=== PATIENT | female | born 1965 | race Caucasian/White ===

== ENCOUNTER 2017-01-04 01:04 | Emergency (ER) | payer BC ==
[~2017-01-04] VITALS: Ht 168.9 cm; Wt 82.5 kg
[~2017-01-04 01:04] MED LIST: LORA-741 PO; PANT1TAB48 PO; ROPI1TAB70 PO; SERT50TA PO
[2017-01-04 01:09] VITALS: TEMP 36.8; Ht 168.9 cm; Wt 82.5 kg
[2017-01-04] MEDS ORDERED: ACETAMINOPHEN 500 MG TAB PO STA (01:14)
[2017-01-04 01:34] VITALS: O2SAT 98
[2017-01-04 01:46] LABS: HEMATOCRIT 44.4 % (37-47); MEAN CELL VOLUME 90.4 fL (80-100); MEAN CORPUSCULAR HEMOGLOBIN 29.7 pg (25-34); MEAN CORPUSCULAR HGB CONC 32.9 g/dl (32-36); MEAN PLATELET VOLUME 9.9 fL (7.4-10.4); PLATELET COUNT 323 K/uL (130-400); RED BLOOD COUNT 4.91 M/uL (4.2-5.4); WHITE BLOOD COUNT 10.68 K/uL (4.8-10.8)
[2017-01-04] MEDS ORDERED: ROPINIROLE HCL 1 MG TAB PO STA (01:56)
[2017-01-04 02:05] LABS: CALCIUM 9.5 mg/dl (8.5-10.1); CREATININE 0.74 mg/dl (0.60-1.20); POTASSIUM 3.9 mmol/L (3.5-5.1)
[2017-01-04 02:08] LABS: ALB/GLOB RATIO 1.1 (0.9-2)
[2017-01-04 02:30] LABS: BASO % 0.2 %; BASO ABS # 0.02 K/uL (0-0.2); COMPLETE YES; EOS % 2.2 %; HYPERSEGMENTED POLYS 1+; IG% 0.2 %; LYMPH % 49.3 %; LYMPH ABS # 5.26 K/uL (1.2-3.4); MONO % 6.6 %; NEUT % 41.5 %
--- NOTE | 2017-01-04 04:10 | EMERGENCY ROOM VISIT NOTE ---
History First contact with patient: 01:09 Chief Complaint: SWELLING TO EXTREMITY Stated Complaint: SWELLING IN LOWER LEFT LEG FROM KNEE DOWN History of Present Illness The patient is a 51 year old female who presents to the Emergency Room with complaints of left leg pain and swelling for the past 2 weeks that is steadily getting worse and fell and injured her leg 2 weeks ago. Patient was of left knee and vega pain. She states her leg is swollen. She is concerned about a DVT. She is able to ambulate. Pain 3 out of 10. Nothing makes it better or worse. Patient denies chest pain, dyspnea, fever, chills, numbness, tingling, abdominal pain, history DVT or PE. She does smoke. Review of Systems See HPI for pertinent positives & negatives. A total of 10 systems reviewed and were otherwise negative. Past Medical/Surgical History Medical Problems: (1) Back pain (2) Crohns disease Social History Smoking Status: Current Every Day Smoker Alcohol Use: occasionally Drug Use: none Occupation Status: employed Current/Historical Medications Scheduled Pantoprazole (Protonix), 40 MG PO QAM Ropinirole Hydrochloride (Ropinirole Er), 1 TAB PO HS Sertraline (Zoloft), 75 MG PO HS Scheduled PRN Lorazepam (Ativan), 0.5 MG PO Q6H PRN for Anxiety Allergies Coded Allergies: Venlafaxine (Verified Allergy, Mild, NAUSEA, 01/04/17) Bupropion (Verified Allergy, Unknown, Nausea/Vomiting, 01/04/17) Morphine (Verified Adverse Reaction, Mild, BURNING FEELING, 01/04/17) Physical Exam Vital Signs Date Time Temp Pulse Resp B/P Pulse Ox O2 Delivery O2 Flow Rate FiO2 01/04/17 03:19 89 18 116/68 95 Room Air 01/04/17 01:40 108 01/04/17 01:34 98 Room Air 01/04/17 01:09 36.8 110 18 156/97 98 Room Air Physical Exam VITALS: Vitals are noted on the nurse's note and reviewed by myself. Vital signs mildly tachycardic. GENERAL: Pleasant female, in no acute distress, nondiaphoretic, well-developed well-nourished. SKIN: Capillary reflex less than 2 seconds. HEENT: Normocephalic. PERRLA. EOMI. Nares patent. Mucous membranes moist. Neck is supple without nuchal rigidity. HEART: Regular rate and rhythm without murmurs gallops or rubs. LUNGS: Clear to auscultation bilaterally without wheezes, rales or rhonchi. No retractions or accessory muscle use. ABDOMEN: Positive bowel sounds x 4. Normal tympanic percussion. Soft, nontender, without masses or organomegaly. Cortez sign negative. No guarding or rebound tenderness. MUSCULOSKELETAL: No gross musculoskeletal defects. No pedal edema. Left knee medial aspect slightly tender to palpation and slightly edematous left calf tender to palpation slightly edematous. Pedal pulses +2 equal present bilaterally. Left vega nontender to the patient. NEURO: Patient was alert and oriented to person place and time. Normal sensation to light and sharp touch. No focal neurological deficits. Medical Decision & Procedures Laboratory Results 01/04/17 01:38 Red Blood Count 4.91, Mean Corpuscular Volume 90.4, Mean Corpuscular Hemoglobin 29.7, Mean Corpuscular Hemoglobin Concent 32.9, Mean Platelet Volume 9.9, Neutrophils (%) (Auto) 41.5, Lymphocytes (%) (Auto) 49.3, Monocytes (%) (Auto) 6.6, Eosinophils (%) (Auto) 2.2, Basophils (%) (Auto) 0.2, Neutrophils # (Auto) 4.44, Lymphocytes # (Auto) 5.26, Monocytes # (Auto) 0.71, Eosinophils # (Auto) 0.23, Basophils # (Auto) 0.02 01/04/17 01:38 Test 01/04/17 01:38 White Blood Count 10.68 K/uL (4.8-10.8) Red Blood Count 4.91 M/uL (4.2-5.4) Hemoglobin 14.6 g/dL (12.0-16.0) Hematocrit 44.4 % (37-47) Mean Corpuscular Volume 90.4 fL (80-100) Mean Corpuscular Hemoglobin 29.7 pg (25-34) Mean Corpuscular Hemoglobin Concent 32.9 g/dl (32-36) Platelet Count 323 K/uL (130-400) Mean Platelet Volume 9.9 fL (7.4-10.4) Neutrophils (%) (Auto) 41.5 % Lymphocytes (%) (Auto) 49.3 % Monocytes (%) (Auto) 6.6 % Eosinophils (%) (Auto) 2.2 % Basophils (%) (Auto) 0.2 % Neutrophils # (Auto) 4.44 K/uL (1.4-6.5) Lymphocytes # (Auto) 5.26 K/uL (1.2-3.4) Monocytes # (Auto) 0.71 K/uL (0.11-0.59) Eosinophils # (Auto) 0.23 K/uL (0-0.5) Basophils # (Auto) 0.02 K/uL (0-0.2) RDW Standard Deviation 44.0 fL (36.4-46.3) RDW Coefficient of Variation 13.3 % (11.5-14.5) Immature Granulocyte % (Auto) 0.2 % Immature Granulocyte # (Auto) 0.02 K/uL (0.00-0.02) Hypersegmented Polys 1+ Anion Gap 7.0 mmol/L (3-11) Est Creatinine Clear Calc Drug Dose 97.2 ml/min Estimated GFR () 108.0 Estimated GFR (Non- 93.1 BUN/Creatinine Ratio 25.0 (10-20) Calcium Level 9.5 mg/dl (8.5-10.1) Total Bilirubin 0.1 mg/dl (0.2-1) Aspartate Amino Transf (AST/SGOT) 21 U/L (15-37) Alanine Aminotransferase (ALT/SGPT) 25 U/L (12-78) Alkaline Phosphatase 98 U/L (45-117) Total Protein 8.0 gm/dl (6.4-8.2) Albumin 4.2 gm/dl (3.4-5.0) Globulin 3.8 gm/dl (2.5-4.0) Albumin/Globulin Ratio 1.1 (0.9-2) Medications Administered Medications (Trade) Dose Ordered Sig/Darby Route Start Time Stop Time Status Last Admin Dose Admin Acetaminophen (Tylenol Tab) 1,000 mg NOW STAT PO 01/04/17 01:14 01/04/17 01:15 DC 01/04/17 01:33 1,000 MG Ropinirole HCl (Requip Tab) 2 mg NOW STAT PO 01/04/17 01:56 01/04/17 01:57 DC 01/04/17 02:34 2 MG ED Course Prior records reviewed and summarized above. Triage Nursing notes reviewed. The patient's history was concerning for swelling and pain in the leg. Differential diagnosis: Etiologies such as DVT, musculoskeletal, infection, joint effusion, trauma, lymphedema, idiopathic, CHF, as well as others were entertained.. Physical examination: The physical examination revealed no signs of infection. Neurovascularly intact. ER treatment provided: Tylenol On reassessment the patient felt better. Diagnostics interpreted by me: The labs revealed no worrisome leukocytosis or electrolyte abnormality Imaging studies: US VENOUS LEFT LOWER EXTREMITY: No evidence of deep vein thrombosis. Knee x-ray with no acute fracture, dislocation or effusion per my interpretation This appears to be consistent with leg pain mostly from venous insufficiency and recent injury. Patient was advised to wear PANCHO hose for compression while up and about. Patient was neurovascularly and neurologically intact. She is well-appearing. No fracture. She was advised to follow-up with her family care doctor in a few days or here in the ER sooner for severe pain, numbness, tingling, worsening signs or symptoms or as needed. By the evaluation outlined above emergent etiologies such as DVT, septic joint, trauma, infection, CHF, as well as others were deemed relatively unlikely. The pt informed about the findings as listed above. All questions were answered and pleased with the treatment. Return instructions were outlined and the patient was discharged in stable condition. Referral: The patient was referred back to their primary care physician for follow-up in 2 to 3 days for a recheck of the current condition. Case reviewed with my attending. Medical Decision As above Impression Primary Impression: Left leg pain Additional Impression: Varicose veins of legs Departure Information Dispostion Home / Self-Care Condition GOOD Referrals Bandar Crisostomo PA-C (PCP) Patient Instructions My [facility] Additional Instructions Wear PANCHO hose when up and about throughout the day. Ibuprofen(Motrin, Advil) may be used for fever or pain. Use 600mg every six hours as needed. Take with food. Avoid using more than 2400mg in a 24 hour period. Do not use 2400mg per day for more than three consecutive days without physician direction. Prolonged inappropriate use can lead to stomach upset or ulcers. (AND/OR) Acetaminophen(Tylenol) may be used for fever or pain. Use 1000mg every six hours as needed. Avoid using more than 3000mg in a 24 hour period. Rest and drink plenty of fluids as tolerated. Continue current medications. Avoid strenuous activities and anything that worsens your pain. Resume normal activities once your symptoms resolve. Return to the ER immediately for worsening or persistent leg pain, abdominal pain, vomiting, fevers, chest pains, difficulty breathing, worsening of your condition, or as needed. Follow up with your primary physician in 2-3 days for a recheck of your current condition. Problem Qualifiers
[2017-01-04 04:21] VITALS: BP 128/73; PULSE 89; O2SAT 97
--- NOTE | 2017-01-04 07:02 | DIAGNOSTIC IMAGING REPORT ---
LEFT LOWER EXTREMITY VENOUS DOPPLER HISTORY: Left leg swelling. EVALUATE FOR DVT COMPARISON STUDY: None. FINDINGS: There is normal compressibility, flow, and augmentation within the left lower extremity deep venous system. IMPRESSION: No DVT within the left lower extremity. Electronically signed by: Sean Menjivar M.D. 01/04/2017 7:01 AM Dictated Date/Time: 01/04/2017 7:00 AM
--- NOTE | 2017-01-04 07:08 | DIAGNOSTIC IMAGING REPORT ---
LEFT KNEE 3 VIEWS HISTORY: fall, left COMPARISON: None. FINDINGS: There is no fracture or dislocation. Soft tissues are unremarkable. No radiopaque foreign bodies. No knee effusion. IMPRESSION: No fractures. Electronically signed by: Sean Menjivar M.D. 01/04/2017 7:06 AM Dictated Date/Time: 01/04/2017 7:06 AM
== END 2017-01-04 04:20 | disposition home or self-care (01) ==
LOC: C.EDB 01:05
DX: M79.605 Pain in left leg (principal); W19.XXXA Unspecified fall, initial encounter; I83.93 Asymptomatic varicose veins of bilateral lower extremities; K50.90 Crohn's disease, unspecified, without complications; F17.210 Nicotine dependence, cigarettes, uncomplicated; Z79.899 Other long term (current) drug therapy

== ENCOUNTER 2017-10-25 22:06 | Emergency (ER) | payer BC ==
[~2017-10-25] VITALS: Ht 167.6 cm; Wt 75.8 kg
[~2017-10-25 22:06] MED LIST changes: +PANT1TAB3 PO; -PANT1TAB48 PO
[2017-10-25 22:09] VITALS: TEMP 36.5; Ht 167.6 cm; Wt 75.8 kg
[2017-10-25 22:36] LABS: HEMATOCRIT 43.6 % (37-47); HEMOGLOBIN 15.1 g/dL (12.0-16.0); MEAN CELL VOLUME 89.3 fL (80-100); MEAN CORPUSCULAR HEMOGLOBIN 30.9 pg (25-34); MEAN CORPUSCULAR HGB CONC 34.6 g/dl (32-36); MEAN PLATELET VOLUME 10.4 fL (7.4-10.4); PLATELET COUNT 259 K/uL (130-400); RED CELL DISTRIBUTION WIDTH CV 13.7 % (11.5-14.5); RED CELL DISTRIBUTION WIDTH SD 44.9 fL (36.4-46.3); WHITE BLOOD COUNT 9.64 K/uL (4.8-10.8)
[2017-10-25 22:43] VITALS: O2SAT 99
[2017-10-25 22:45] LABS: PTT PATIENT 25.7 SECONDS (21.0-31.0)
--- NOTE | 2017-10-25 22:51 | DIAGNOSTIC IMAGING REPORT ---
SINGLE VIEW CHEST CLINICAL HISTORY: Atypical chest pain. FINDINGS: An AP, portable, upright chest radiograph is compared to study dated 05/18/2016 and correlated with chest CT dated 06/29/2016. The examination is degraded by portable technique and patient rotation. The cardiomediastinal silhouette is unremarkable. There is atherosclerotic calcification of the thoracic aorta. Emphysema and chronic interstitial thickening are unchanged. No airspace consolidation or pleural effusion is identified. Biapical scarring is similar to previous. No pneumothorax is seen. The skeletal structures are osteopenic. The bony thorax is grossly intact. IMPRESSION: Emphysema with no acute cardiopulmonary abnormality. Electronically signed by: Yordan Rousseau M.D. 10/25/2017 10:50 PM Dictated Date/Time: 10/25/2017 10:49 PM
[2017-10-25 22:52] LABS: ALBUMIN 4.2 gm/dl (3.4-5.0); ALT/SGPT 18 U/L (12-78); AST/SGOT 14 U/L (15-37); BLOOD UREA NITROGEN 18 mg/dl (7-18); CALCIUM 9.7 mg/dl (8.5-10.1); CARBON DIOXIDE 26 mmol/L (21-32); CREATININE 0.71 mg/dl (0.60-1.20); GLUCOSE 105 mg/dl (70-99); POTASSIUM 3.6 mmol/L (3.5-5.1); SODIUM 139 mmol/L (136-145)
[2017-10-25 22:56] LABS: ALKALINE PHOSPHATASE 90 U/L (45-117); TOTAL PROTEIN 7.8 gm/dl (6.4-8.2)
--- NOTE | 2017-10-25 23:00 | DIAGNOSTIC IMAGING REPORT ---
CT SCAN OF THE BRAIN WITHOUT IV CONTRAST CLINICAL HISTORY: Fatigue. COMPARISON STUDY: No priors. TECHNIQUE: Unenhanced axial CT scan of the brain is performed from the vertex to the skull base. A dose lowering technique was utilized adhering to the principles of ALARA. CT DOSE: 888.62 mGy.cm FINDINGS: Brain parenchyma: The brain parenchyma is normal in appearance. There is no hemorrhage, mass effect, or evidence of acute territorial ischemia by CT criteria. Vergara-white matter is preserved. No extra-axial fluid collection is seen. Ventricles, sulci, cisterns: Normal in configuration. Intracranial vasculature: The visualized intracranial vasculature at the skull base is normal in appearance. Calvarium: Unremarkable. Sinuses and mastoids: The visualized paranasal sinuses are clear. The mastoid air cells are well pneumatized. Orbits: The bony orbits are grossly intact. IMPRESSION: No acute intracranial abnormality. Electronically signed by: Yordan Rousseau M.D. 10/25/2017 10:59 PM Dictated Date/Time: 10/25/2017 10:56 PM
--- NOTE | 2017-10-25 23:03 | DIAGNOSTIC IMAGING REPORT ---
CT SCAN OF THE CERVICAL SPINE CLINICAL HISTORY: Neck pain. COMPARISON STUDY: No priors. TECHNIQUE: CT scan of the cervical spine is performed from the skull base to the upper thoracic spine. Images are reviewed in the axial, sagittal, and coronal planes. IV contrast was not administered for this examination. A dose lowering technique was utilized adhering to the principles of ALARA. CT DOSE: Reported separately under the concurrently performed CT scan of the brain. FINDINGS: Skeletal structures: The skeletal structures are osteopenic. There is no evidence of fracture or subluxation involving the cervical spine. Vertebral body height and alignment are maintained. There is straightening of the cervical lordosis with mild reversal centered at C4-C5. Tiny anterior osteophytes are seen throughout. The odontoid process and lateral masses are intact. The atlantoaxial articulation is preserved noting mild productive degenerative change. The spinous processes appear intact. Intervertebral discs: Mild disc space narrowing seen at C3-C4, C5-C6, and C6-C7. Central canal: Tiny posterior disc osteophyte complexes at C3-C4 and C5-C6 may contribute to minimal acquired compromise of the central canal. Soft tissues: The prevertebral and paraspinous soft tissues are within normal limits. Calvarium: The visualized calvarium at the skull base appears intact. Brain parenchyma: Partially visualized brain parenchyma the skull base is within normal limits. Sinuses and mastoids: The visualized paranasal sinuses are clear. The mastoid air cells are well pneumatized. Lung apices: Emphysema and marked pleural parenchymal scarring are present at the apices. IMPRESSION: There is no evidence of fracture or subluxation involving the cervical spine. Electronically signed by: Yordan Rousseau M.D. 10/25/2017 11:02 PM Dictated Date/Time: 10/25/2017 10:59 PM
[2017-10-26 00:55] VITALS: BP 107/63; PULSE 65; O2SAT 98
--- NOTE | 2017-10-26 01:13 | EMERGENCY ROOM VISIT NOTE ---
History First contact with patient: 22:13 Chief Complaint: CARDIAC ASSESSMENT Stated Complaint: FATIGUE, HEAVINESS IN CHEST Nursing Triage Summary: Pt. reports left arm heaviness that started today. Also reports pressure between her shoulder blades. Has shortness of breath, but attributes this to being a smoker. Denies chest pain. History of Present Illness The patient is a 52 year old female who presents to the Emergency Room with complaints of neck pain that goes down her arm described as discomfort and heaviness for the past day. Patient is a history of a pinched nerve in her neck. She states this feels slightly different. She states she has been having more stress lately. She does smoke. There is a family history of heart disease. No prior heart disease per patient. No history of blood clots. No injury to the area. Pain and discomfort have been present since 11 AM. Nothing makes it better or worse. Patient denies chest pain, dyspnea, fever, chills, injury to the area, numbness, tingling, localized weakness. No abdominal pain or recent illness. Patient states her left arm just feels kind of heavy like she has overexerted herself. She is able to use the arm. Review of Systems An 10 system review of systems was completed with positives and pertinent negatives listed in the HPI. Past Medical/Surgical History Medical Problems: (1) Back pain (2) Crohns disease Social History Smoking Status: Current Every Day Smoker Alcohol Use: occasionally Drug Use: none Marital Status: Housing Status: lives with family Occupation Status: employed Current/Historical Medications Scheduled Ropinirole Hydrochloride (Ropinirole Er), 2 MG PO HS Sertraline (Zoloft), 75 MG PO HS Scheduled PRN Lorazepam (Ativan), 0.5 MG PO Q6H PRN for Anxiety Physical Exam Vital Signs Date Time Temp Pulse Resp B/P (MAP) Pulse Ox O2 Delivery O2 Flow Rate FiO2 10/26/17 00:55 65 16 107/63 98 Room Air 10/25/17 23:00 60 20 129/76 98 Room Air 10/25/17 22:43 99 Room Air 10/25/17 22:31 170/97 10/25/17 22:30 76 22 97 Room Air 10/25/17 22:23 71 10/25/17 22:17 82 18 161/81 99 Room Air 10/25/17 22:17 100 Room Air 10/25/17 22:17 99 Room Air 10/25/17 22:09 36.5 92 20 145/107 97 Room Air Physical Exam VITALS: Vitals are noted on the nurse's note and reviewed by myself. Vital signs hypertensive GENERAL: Pleasant female with tobacco odor, in no acute distress, nondiaphoretic , well-developed well-nourished. SKIN: The skin was without rashes, erythema, edema, or bruising. There is no tenting of the skin. Capillary reflex less than 2 seconds. HEAD: Normocephalic atraumatic. EARS: External auditory canals clear, tympanic membranes pearly vergara without erythema or effusion bilaterally. EYES: Pupils equal round and reactive to light and accommodation. Conjunctivae without injection, sclerae without icterus. Extraocular movements intact. NOSE: Patent, turbinates without inflammation or discharge. MOUTH: Mucous membranes moist. Pharynx without erythema or exudate. Uvula midline. Airway patent. Tongue does not deviate. NECK: Supple without nuchal rigidity. No lymphadenopathy. No thyromegaly. Cervical spine is nontender. No JVD. HEART: Regular rate and rhythm LUNGS: Clear to auscultation bilaterally without wheezes, rales or rhonchi. No retractions or accessory muscle use. ABDOMEN: Positive bowel sounds x 4. Normal tympanic percussion. Soft, nontender, without masses or organomegaly. Cortez sign negative. No guarding or rebound tenderness. No CVA tenderness MUSCULOSKELETAL: No muscle atrophy, erythema, or edema noted. 5 out of 5 strength throughout all extremities and nontender to palpation. +2 peripheral pulses throughout NEURO: Patient was alert and oriented to person place and time. Normal sensation to light and sharp touch. No focal neurological deficits. Medical Decision & Procedures Laboratory Results 10/25/17 22:20 Red Blood Count 4.88, Mean Corpuscular Volume 89.3, Mean Corpuscular Hemoglobin 30.9, Mean Corpuscular Hemoglobin Concent 34.6, Mean Platelet Volume 10.4 10/25/17 22:20 Test 10/25/17 22:20 10/26/17 00:55 White Blood Count 9.64 K/uL (4.8-10.8) Red Blood Count 4.88 M/uL (4.2-5.4) Hemoglobin 15.1 g/dL (12.0-16.0) Hematocrit 43.6 % (37-47) Mean Corpuscular Volume 89.3 fL (80-100) Mean Corpuscular Hemoglobin 30.9 pg (25-34) Mean Corpuscular Hemoglobin Concent 34.6 g/dl (32-36) Platelet Count 259 K/uL (130-400) Mean Platelet Volume 10.4 fL (7.4-10.4) RDW Standard Deviation 44.9 fL (36.4-46.3) RDW Coefficient of Variation 13.7 % (11.5-14.5) Neutrophils % (Manual) 37.7 % Lymphocytes % (Manual) 29.8 % Variant Lymphocytes % (manual) 28.1 % Monocytes % (Manual) 3.5 % Eosinophils % (Manual) 0.9 % Neutrophils # (Manual) 3.63 K/uL (1.4-6.5) Total Absolute Neutrophils 3.63 K/uL (1.4-6.5) Lymphocytes # (Manual) 2.87 K/uL (1.2-3.4) Absolute Variant Lymphocytes 2.71 K/uL Total Absolute Lymphocytes 5.58 K/uL (1.2-3.4) Monocytes # (Manual) 0.34 K/uL (0.11-0.59) Eosinophils # (Manual) 0.09 K/uL (0-0.5) Red Blood Cell Morphology Unremarkable Prothrombin Time 10.3 SECONDS (9.0-12.0) Prothromb Time International Ratio 1.0 (0.9-1.1) Activated Partial Thromboplast Time 25.7 SECONDS (21.0-31.0) Partial Thromboplastin Ratio 1.0 Anion Gap 6.0 mmol/L (3-11) Est Creatinine Clear Calc Drug Dose 95.3 ml/min Estimated GFR () 112.7 Estimated GFR (Non- 97.2 BUN/Creatinine Ratio 24.6 (10-20) Calcium Level 9.7 mg/dl (8.5-10.1) Magnesium Level 2.1 mg/dl (1.8-2.4) Total Bilirubin 0.3 mg/dl (0.2-1) Direct Bilirubin 0.1 mg/dl (0-0.2) Aspartate Amino Transf (AST/SGOT) 14 U/L (15-37) Alanine Aminotransferase (ALT/SGPT) 18 U/L (12-78) Alkaline Phosphatase 90 U/L (45-117) Troponin I < 0.015 ng/ml (0-0.045) Total Protein 7.8 gm/dl (6.4-8.2) Albumin 4.2 gm/dl (3.4-5.0) Bedside Troponin I < 0.030 ng/ml (0-0.045) ED Course Prior records/ancillary studies reviewed. Triage Nursing notes reviewed. Additional history obtained from family The patient's history was concerning for neck to left arm and heaviness. Differential diagnosis: Etiologies such as neurologic, cervical radiculopathy, cardiac ischemia, aortic dissection, pulmonary embolism, pneumonia, pneumothorax, musculoskeletal, infections, pericarditis, myocarditis, esophageal rupture, gastrointestinal, as well as others were entertained. Physical examination: As above. ER treatment provided: po fluids On reassessment the patient felt better. Diagnostic interpretation by me: The electrocardiogram was negative for pathologic change. Normal sinus, normal intervals, no acute ST-T wave changes. Rate is 74. Impression normal sinus rhythm interpreted by myself The labs revealed 2 troponins that are negative greater than 2 hours apart Mild hyperglycemia without DKA Imaging studies: CLINICAL HISTORY: Neck pain. COMPARISON STUDY: No priors. TECHNIQUE: CT scan of the cervical spine is performed from the skull base to the upper thoracic spine. Images are reviewed in the axial, sagittal, and coronal planes. IV contrast was not administered for this examination. A dose lowering technique was utilized adhering to the principles of ALARA. CT DOSE: Reported separately under the concurrently performed CT scan of the brain. FINDINGS: Skeletal structures: The skeletal structures are osteopenic. There is no evidence of fracture or subluxation involving the cervical spine. Vertebral body height and alignment are maintained. There is straightening of the cervical lordosis with mild reversal centered at C4-C5. Tiny anterior osteophytes are seen throughout. The odontoid process and lateral masses are intact. The atlantoaxial articulation is preserved noting mild productive degenerative change. The spinous processes appear intact. Intervertebral discs: Mild disc space narrowing seen at C3-C4, C5-C6, and C6-C7. Central canal: Tiny posterior disc osteophyte complexes at C3-C4 and C5-C6 may contribute to minimal acquired compromise of the central canal. Soft tissues: The prevertebral and paraspinous soft tissues are within normal limits. Calvarium: The visualized calvarium at the skull base appears intact. Brain parenchyma: Partially visualized brain parenchyma the skull base is within normal limits. Sinuses and mastoids: The visualized paranasal sinuses are clear. The mastoid air cells are well pneumatized. Lung apices: Emphysema and marked pleural parenchymal scarring are present at the apices. IMPRESSION: There is no evidence of fracture or subluxation involving the cervical spine. Electronically signed by: Yordan Rousseau M.D. CT SCAN OF THE BRAIN WITHOUT IV CONTRAST CLINICAL HISTORY: Fatigue. COMPARISON STUDY: No priors. TECHNIQUE: Unenhanced axial CT scan of the brain is performed from the vertex to the skull base. A dose lowering technique was utilized adhering to the principles of ALARA. CT DOSE: 888.62 mGy.cm FINDINGS: Brain parenchyma: The brain parenchyma is normal in appearance. There is no hemorrhage, mass effect, or evidence of acute territorial ischemia by CT criteria. Vergara-white matter is preserved. No extra-axial fluid collection is seen. Ventricles, sulci, cisterns: Normal in configuration. Intracranial vasculature: The visualized intracranial vasculature at the skull base is normal in appearance. Calvarium: Unremarkable. Sinuses and mastoids: The visualized paranasal sinuses are clear. The mastoid air cells are well pneumatized. Orbits: The bony orbits are grossly intact. IMPRESSION: No acute intracranial abnormality. SINGLE VIEW CHEST CLINICAL HISTORY: Atypical chest pain. FINDINGS: An AP, portable, upright chest radiograph is compared to study dated 05/18/2016 and correlated with chest CT dated 06/29/2016. The examination is degraded by portable technique and patient rotation. The cardiomediastinal silhouette is unremarkable. There is atherosclerotic calcification of the thoracic aorta. Emphysema and chronic interstitial thickening are unchanged. No airspace consolidation or pleural effusion is identified. Biapical scarring is similar to previous. No pneumothorax is seen. The skeletal structures are osteopenic. The bony thorax is grossly intact. IMPRESSION: Emphysema with no acute cardiopulmonary abnormality Electronically signed by: Yordan Rousseau M.D. Heart score is 2 for tobacco use and age Exam and history seem consistent with cervical radiculopathy. Patient was neurovascularly and neurologically intact. She had a normal EKG. 2 negative troponins. Patient has been underneath more stress lately. She is advised to rest, decrease stress, recommend stop smoking and follow-up family care in a few days or here in the ER sooner for chest pain, difficulty breathing, weakness , worsening signs or symptoms or as needed.By the evaluation outlined above emergent etiologies such as cardiac ischemia, aortic dissection, pulmonary embolism, pneumonia, pneumothorax, infections, pericarditis, myocarditis, gastrointestinal, as well as others were deemed relatively unlikely. The pt informed about the findings as listed above. All questions were answered and pleased with the treatment. Return instructions were outlined and the patient was discharged in stable condition. Referral: The patient was referred back to primary care physician for follow-up in 2 to 3 days for a recheck of the current condition. Case reviewed with my attending The chart was completed utilizing [employer] voice recognition software. Grammatical errors, random word insertions, pronoun errors, and incomplete sentences are an occassional consequence of this system due to software limitations, ambient noise, and hardware issues. Any formal questions or concerns about the content, text, or information contained within the body of this dictation should be directly addressed to the physician trust manager assistant for clarification. Medical Decision as above Medication Reconcilliation Current Medication List: was personally reviewed by me Blood Pressure Screening Patient's blood pressure: Normal blood pressure Impression Primary Impression: Cervical radiculopathy Departure Information Dispostion Home / Self-Care Condition GOOD Referrals Bandar Crisostomo PA-C (PCP) Patient Instructions My [facility] Additional Instructions Ibuprofen(Motrin, Advil) may be used for fever or pain. Use 600mg every six hours as needed. Take with food. Avoid using more than 2400mg in a 24 hour period. Do not use 2400mg per day for more than three consecutive days without physician direction. Prolonged inappropriate use can lead to stomach upset or ulcers. (AND/OR) Acetaminophen(Tylenol) may be used for fever or pain. Use 1000mg every six hours as needed. Avoid using more than 3000mg in a 24 hour period. Rest and drink plenty of fluids as tolerated. Continue current medications. Avoid strenuous activities and anything that worsens your pain. Resume normal activities once your symptoms resolve. Return to the ER immediately for worsening or persistent chest pain, abdominal pain, vomiting, fevers, chest pains, difficulty breathing, worsening of your condition, or as needed. Follow up with your primary physician in 2-3 days for a recheck of your current condition.
== END 2017-10-26 01:20 | disposition home or self-care (01) ==
LOC: C.EDB 22:08
DX: M54.12 Radiculopathy, cervical region (principal); F17.200 Nicotine dependence, unspecified, uncomplicated; K50.90 Crohn's disease, unspecified, without complications; Z82.49 Family history of ischemic heart disease and other diseases of the circulatory system

== ENCOUNTER 2022-01-08 02:04 | Observation (INO) ==
[2022-01-08] MEDS ORDERED: FAMOTIDINE 20MG IV PUSH 20 MG/5 ML SYR IV STA (03:10)
[2022-01-08 03:23] LABS: Basophils # (auto) 0.01 K/uL (0-0.2); Basophils % (auto) 0.1 %; Eosinophils # (auto) 0.14 K/uL (0-0.5); Eosinophils % (auto) 1.1 %; Hematocrit (blood only) 46.7 % (37-47); Hemoglobin 15.6 g/dL (12.0-16.0); Immature Granulocytes # (auto) 0.05 K/uL (0.00-0.02); Immature Granulocytes % (auto) 0.4 %; Lymphocytes # (auto) 2.66 K/uL (1.2-3.4); Mean Corpuscular Hgb Conc 33.4 g/dL (32-36); Mean Corpuscular Volume 92.7 fL (80-100); Mean Platelet Volume 10.8 fL (7.4-10.4); Monocytes % (auto) 6.3 %; Neutrophils # (auto) 8.98 K/uL (1.4-6.5); Neutrophils % (auto) 71.1 %; Platelet Count 282 K/uL (130-400); RDW Coefficient of Variation 13.8 % (11.5-14.5); Red Blood Count 5.04 M/uL (4.2-5.4); White Blood Count 12.64 K/uL (4.8-10.8)
[2022-01-08 04:02] LABS: Albumin Globulin Ratio 1.5 (0.9-2); Albumin Level 4.3 gm/dl (3.4-5.0); Bilirubin,Total 0.5 mg/dl (0.2-1.0); Calcium 9.8 mg/dl (8.5-10.1); Creatinine Clr Calc Pharmacy 92.3 ml/min; Est GFR (African American) 100.9 ml/min; Est GFR (Non-African American) 87.1 ml/min; Globulin 2.9 gm/dl (2.5-4.0); Potassium 3.8 mmol/L (3.5-5.1); Total Protein 7.2 gm/dl (6.0-8.3)
[2022-01-08 04:07] LABS: Appearance Urine Clear (Clear); Bacteria Urine Automated Negative (Negative); Bilirubin Urine Negative (Negative); Blood Urine Negative (Negative); Color Urine Yellow; Glucose Urine UA Negative (Negative); Ketones Urine Negative (Negative); Leukocyte Esterase Urine 1+ (Negative); Nitrite Urine Negative (Negative); Protein Urine Negative (Negative); RBC Urine Automated 0-4 /hpf (0-4); Specific Gravity Urine 1.012 (1.000-1.030); Urobilinogen Urine Negative (Negative)
--- NOTE | 2022-01-08 05:07 | Emergency Department Note ---
Impression & Plan Epigastric abdominal pain The case was signed out to doctor Gregorio at change of shift ED Provider Note NAME: LILI SALDIVAR AGE: 56 SEX: F ARRIVES VIA: Ambulance INFORMANT: [Patient] ED PROVIDER(S): Franny Farias DO CHIEF COMPLAINT: Epigastric pain PLAN: Disposition: The case was signed out to doctor Gregorio at change of shift Condition: Stable MEDICAL DECISION MAKING: This is a 56-year-old female patient who presents to the emergency department with epigastric abdominal pain that would not respond to her omeprazole. The patient received IV Pepcid in the emergency department. Laboratory studies were fairly unremarkable except for elevated transaminases. The patient was able to rest comfortably. She underwent ultrasound the gallbladder and was awaiting results of that test. The case was signed out to doctor Gregorio at change of shift awaiting results. Triage Nursing notes reviewed and agree with them Vital Signs: reviewed and remarkable for mild hypertension Differential diagnosis: GERD, pancreatitis, ulcerative disease, cholecystitis ER treatment provided: IV Pepcid Diagnostics interpreted by me: ECG: Normal sinus rhythm at a rate of [address] segment elevation or signs of ischemia. There is no ectopy. Cardiac Monitoring: Normal sinus rhythm at a rate of 69 Laboratory studies: [See below] Imaging studies: As per Stat Rad Right upper quadrant ultrasound- pending HPI: 56/F arrives for evaluation of epigastric abdominal pain. The patient developed epigastric abdominal pain that radiated to her left shoulder earlier this evening. She tried taking omeprazole around 6 PM and then again at 11 PM with no relief of her symptoms. Became more concerned and called EMS. Upon their assessment, she was nauseated and they provided Zofran which did give her some relief of the nausea. ROS: See above HPI for pertinent positives & negatives. A total of [10] systems reviewed and were otherwise negative. PAST MEDICAL HISTORY:[See Below] PAST SURGICAL HISTORY:[See Below] FAMILY HISTORY:[See Below] SOCIAL HISTORY:[See Below] HOME MEDICATIONS:See list ALLERGIES:See list VITALS:[See Below] PHYSICAL EXAMINATION: HEENT: Head - normocephalic and atraumatic. Pupils are equal, round, and reactive to light. Extraocular eye muscles are intact, and sclera are anicteric. Nose - moist nasal mucosa without discharge. Mouth - moist buccal mucosa. Oropharynx is nonerythematous and there is no tonsillar exudate or edema noted. Neck: Supple; no cervical lymphadenopathy or thyromegaly. Heart: Regular rate and rhythm. There is a normal S1 and S2 with no murmurs, clicks, or gallops appreciated. Lungs: Clear to auscultation bilaterally with no wheezes, rales, or rhonchi. Abdomen: Soft, mild tenderness to palpation in the epigastrium, nondistended, with good bowel sounds. There are no palpable pulsatile masses or hepatosplenomegaly. There is no guarding, rigidity, or rebound noted. Extremities: No evidence of cyanosis, clubbing, or edema. There are easily palpable peripheral pulses. Skin: warm and dry with good turgor and no rashes. ED COURSE: Times/Reassessments: 230 the patient was evaluated in room B 12. A complete history and physical was performed. Laboratory studies were drawn as above. An order was placed for continuous cardiac monitoring. Patient was in a normal sinus rhythm at a rate of 69. A twelve-lead EKG was obtained. A portable chest x-ray was performed. I reviewed the results of the laboratory studies with the patient and her family. Patient was given a dose of IV Pepcid. She will go for an ultrasound of the right upper quadrant -[id number]- A DO Jarrett Past Med/Surg History Medical History Acid reflux disease Anxiety and depression Asthma Chronic pain syndrome Crohns disease Migraine headache Pulmonary emphysema Restless legs syndrome Surgical History H/O elbow surgery left H/O knee surgery left H/O tubal ligation H/O: hysterectomy History of lung surgery Family History Father Diabetes Hypertension Cardiac disorder Urinary bladder cancer Myocardial infarction Lung disease Heart disease Mother Kidney stones Anxiety Depression Arthritis Uncle Prostate cancer Unknown Breast cancer Grandmother (Maternal) Arthritis Grandfather (Maternal) Dementia Grandmother (Paternal) Heart disease Grandfather (Paternal) Gallbladder cancer Sister Stroke Kidney failure Social History (Reviewed 01/08/22 @ 11:06 by KSENIA Rojas Smoking Status: Current every day smoker Tobacco Type: Cigarettes Age Started Using Tobacco: 12; packs per day: 1.5; Years Smoked: 23; Cigarettes Per Day: 1.5 packs; Second Hand Exposure: Yes ( A CHILD ); Do You Dip or Chew Tobacco: No; Hx Alcohol Use: Yes Alcohol type: wine and hard liquor Alcohol Intake Frequency: Monthly or Less Hx Substance Use: No Preferred Language: [place] Communication Ability: Effective Visual Impairment: No Limitations Hearing Ability: Normal Traffic Analyst Required: No Beliefs That Will Affect Care: None marital status: Current Living Situation: Spouse current occupational status: disabled How many Children do You have: 1 Other Information That Helps Us Care for You: No Feels Safe at Home: Yes Safety Concerns: Feels Safe At This Time Childhood Exposure to Second-Hand Smoke: No caffeine: Yes (Coffee x 1 cup - Soda 1 per day.) during the past year weight has: remained stable Dental Care, Regularly: No Physical Activity Frequency: Daily Seatbelt Use: always Sunscreen Use: No Assistive Devices: Glasses Allergies Allergies Allergy/AdvReac Type Severity Reaction Status Date / Time venlafaxine Allergy Mild NAUSEA Verified 11/26/21 09:29 bupropion Allergy Unknown Nausea/Vomi Verified 11/26/21 09:29 ting morphine AdvReac Mild BURNING Verified 11/26/21 09:29 FEELING Home Meds Home Medications Medication Instructions Recorded Confirmed iron,carbonyl 65 mg-vitamin C 125 1 tab PO DAILY 10/22/20 01/08/22 mg tablet,delayed release (Vitron-C) mecobalamin (vitamin B12) 1,000 1,000 mcg PO DAILY 11/16/21 01/08/22 mcg chewable tablet (B12 Active) thiamine HCl (vitamin B1) 500 mg 500 mg PO DAILY 11/16/21 01/08/22 tablet duloxetine 30 mg capsule,delayed See Rx Instructions .ROUTE 11/26/21 01/08/22 release .COMPLEX cap duloxetine 60 mg capsule,delayed See Rx Instructions .ROUTE 11/26/21 01/08/22 release .COMPLEX cap ropinirole 2 mg tablet 2 mg PO BID 01/08/22 01/08/22 ropinirole 3 mg tablet 3 mg PO HS 01/08/22 01/08/22 Previous Rx's Medication Instructions Recorded epinephrine 0.3 mg/0.3 mL 0.3 mg SUBCUT ONCE PRN #2 ea 07/12/19 injection, auto-injector (EpiPen 2-Navin) ibuprofen 800 mg tablet 800 mg PO TID PRN #90 tab 05/26/21 lorazepam 0.5 mg tablet 0.5 mg PO TID PRN #90 tab 08/11/21 omeprazole 40 mg capsule,delayed 40 mg PO QAM #90 cap 10/20/21 release methocarbamol 500 mg tablet 500 mg PO TID PRN #90 tab 10/22/21 gabapentin 400 mg capsule 400 mg PO .COMPLEX 30 Days #120 cap 11/15/21 diclofenac sodium 1 % topical gel 2 g TOPICAL QID #100 g 11/16/21 (Voltaren Arthritis Pain) Results & Data (ED) Vital Signs Vital Signs - 24 hr 01/08/22 01:54 01/08/22 02:15 01/08/22 04:00 Temperature 36.8 C Temperature Source Oral Pulse Rate [Apical] Pulse Rate [Right Finger] 85 69 Pulse Rhythm [Apical] Pulse Rhythm [Right Finger] Regular Regular Pulse Strength [Apical] Pulse Strength [Right Finger] Normal Respiratory Rate 18 18 Respiratory Effort / Characteristics Non-Labored Spontaneous Respiratory Depth Normal Normal Respiratory Pattern Regular Blood Pressure [Left Arm] Blood Pressure [Left Radial Artery] 176/85 H 156/88 H Blood Pressure [Right Arm] Blood Pressure Mean [Left Arm] Blood Pressure Mean [Left Radial Artery] 115 110 Blood Pressure Mean [Right Arm] Blood Pressure Position [Left Arm] Blood Pressure Position [Left Radial Artery] Lying Blood Pressure Position [Right Arm] Pulse Oximetry 97 96 Oxygen Delivery Method Room Air Room Air Oxygen Flow Rate Sepsis Recent Fever Within 48 Hours No Sepsis New/Unexplained Change in Mental Status No Sepsis Action Taken by Nursing No Action Required 01/08/22 06:20 01/08/22 07:43 01/08/22 08:45 Temperature Temperature Source Pulse Rate [Apical] Pulse Rate [Right Finger] 54 L 60 52 L Pulse Rhythm [Apical] Pulse Rhythm [Right Finger] Regular Pulse Strength [Apical] Pulse Strength [Right Finger] Normal Respiratory Rate 20 18 18 Respiratory Effort / Characteristics Non-Labored Spontaneous Respiratory Depth Normal Respiratory Pattern Blood Pressure [Left Arm] 167/90 H 134/78 147/75 H Blood Pressure [Left Radial Artery] Blood Pressure [Right Arm] Blood Pressure Mean [Left Arm] 115 96 99 Blood Pressure Mean [Left Radial Artery] Blood Pressure Mean [Right Arm] Blood Pressure Position [Left Arm] Lying Blood Pressure Position [Left Radial Artery] Blood Pressure Position [Right Arm] Pulse Oximetry 99 99 98 Oxygen Delivery Method Room Air Room Air Room Air Oxygen Flow Rate Sepsis Recent Fever Within 48 Hours Sepsis New/Unexplained Change in Mental Status Sepsis Action Taken by Nursing 01/08/22 10:23 01/08/22 10:30 01/08/22 10:40 Temperature 36.1 C L Temperature Source Temporal Artery Scan Pulse Rate [Apical] 72 74 80 Pulse Rate [Right Finger] Pulse Rhythm [Apical] Regular Regular Regular Pulse Rhythm [Right Finger] Pulse Strength [Apical] Normal Normal Normal Pulse Strength [Right Finger] Respiratory Rate 15 13 18 Respiratory Effort / Characteristics Non-Labored Spontaneous Non-Labored Spontaneous Non-Labored Spontaneous Respiratory Depth Normal Normal Normal Respiratory Pattern Regular Regular Regular Blood Pressure [Left Arm] Blood Pressure [Left Radial Artery] Blood Pressure [Right Arm] 161/88 H 149/87 H 158/78 H Blood Pressure Mean [Left Arm] Blood Pressure Mean [Left Radial Artery] Blood Pressure Mean [Right Arm] 112 107 104 Blood Pressure Position [Left Arm] Blood Pressure Position [Left Radial Artery] Blood Pressure Position [Right Arm] Semi-fowlers Semi-fowlers Semi-fowlers Pulse Oximetry 97 100 98 Oxygen Delivery Method Oxymask Oxymask Oxymask Oxygen Flow Rate 6 6 6 Sepsis Recent Fever Within 48 Hours Sepsis New/Unexplained Change in Mental Status Sepsis Action Taken by Nursing 01/08/22 10:50 Temperature Temperature Source Pulse Rate [Apical] 54 L Pulse Rate [Right Finger] Pulse Rhythm [Apical] Regular Pulse Rhythm [Right Finger] Pulse Strength [Apical] Normal Pulse Strength [Right Finger] Respiratory Rate 17 Respiratory Effort / Characteristics Non-Labored Spontaneous Respiratory Depth Normal Respiratory Pattern Regular Blood Pressure [Left Arm] Blood Pressure [Left Radial Artery] Blood Pressure [Right Arm] 154/74 H Blood Pressure Mean [Left Arm] Blood Pressure Mean [Left Radial Artery] Blood Pressure Mean [Right Arm] 100 Blood Pressure Position [Left Arm] Blood Pressure Position [Left Radial Artery] Blood Pressure Position [Right Arm] Semi-fowlers Pulse Oximetry 97 Oxygen Delivery Method Oxymask Oxygen Flow Rate 4 Sepsis Recent Fever Within 48 Hours Sepsis New/Unexplained Change in Mental Status Sepsis Action Taken by Nursing Laboratory Data Result diagrams: 01/08/22 02:50 01/08/22 02:50 Lab Results 01/08/22 01/08/22 01/08/22 Range/Units 02:50 02:50 02:50 WBC 12.64 H (4.8-10.8) K/uL RBC 5.04 (4.2-5.4) M/uL Hgb 15.6 (12.0-16.0) g/dL Hct 46.7 (37-47) % MCV 92.7 (80-100) fL MCH 31.0 (25-34) pg MCHC 33.4 (32-36) g/dL RDW Std Deviation 47.0 H (36.4-46.3) fL RDW Coeff of Inez 13.8 (11.5-14.5) % Plt Count 282 (130-400) K/uL MPV 10.8 H (7.4-10.4) fL Immature Gran % (Auto) 0.4 % Neut % (Auto) 71.1 % Lymph % (Auto) 21.0 % Carlton % (Auto) 6.3 % Eos % (Auto) 1.1 % Baso % (Auto) 0.1 % Neut # (Auto) 8.98 H (1.4-6.5) K/uL Lymph # (Auto) 2.66 (1.2-3.4) K/uL Carlton # (Auto) 0.80 H (0.11-0.59) K/uL Eos # (Auto) 0.14 (0-0.5) K/uL Baso # (Auto) 0.01 (0-0.2) K/uL Immature Gran # (Auto) 0.05 H (0.00-0.02) K/uL Sodium 142 (136-145) mmol/L Potassium 3.8 (3.5-5.1) mmol/L Chloride 106 (98-107) mmol/L Carbon Dioxide 30 (21-32) mmol/L Anion Gap 6 (3-11) BUN 19 (6-23) mg/dl Creatinine 0.76 (0.6-1.2) mg/dl Est Cr Clr Drug Dosing 92.3 ml/min Est GFR ( Amer) 100.9 ml/min Est GFR (Non-Af Amer) 87.1 ml/min BUN/Creatinine Ratio 25.0 H (10-20) Glucose 108 H (70-99(Fasting)) mg/dl Calcium 9.8 (8.5-10.1) mg/dl Total Bilirubin 0.5 (0.2-1.0) mg/dl AST 131 H (13-39) U/L ALT 64 H (7-52) U/L Alkaline Phosphatase 81 (34-104) U/L Troponin I High Sens 4.4 (0-14) pg/ml Total Protein 7.2 (6.0-8.3) gm/dl Albumin 4.3 (3.4-5.0) gm/dl Globulin 2.9 (2.5-4.0) gm/dl Albumin/Globulin Ratio 1.5 (0.9-2) Lipase 27 (11-82) U/L Urine Color Urine Appearance (Clear) Urine pH (4.5-7.5) Ur Specific [place] (1.000-1.030) Urine Protein (Negative) Urine Glucose (UA) (Negative) Urine Ketones (Negative) Urine Blood (Negative) Urine Nitrite (Negative) Urine Bilirubin (Negative) Urine Urobilinogen (Negative) Ur Leukocyte Esterase (Negative) Urine WBC (Auto) (0-5) /hpf Urine RBC (Auto) (0-4) /hpf U Hyaline Cast (Auto) (0-5) /lpf U Epithel Cells (Auto) (0-5) /lpf Urine Bacteria (Auto) (Negative) SARS-CoV-2, RNA, NAAT (NEGATIVE) 01/08/22 01/08/22 Range/Units 03:00 07:55 WBC (4.8-10.8) K/uL RBC (4.2-5.4) M/uL Hgb (12.0-16.0) g/dL Hct (37-47) % MCV (80-100) fL MCH (25-34) pg MCHC (32-36) g/dL RDW Std Deviation (36.4-46.3) fL RDW Coeff of Inez (11.5-14.5) % Plt Count (130-400) K/uL MPV (7.4-10.4) fL Immature Gran % (Auto) % Neut % (Auto) % Lymph % (Auto) % Carlton % (Auto) % Eos % (Auto) % Baso % (Auto) % Neut # (Auto) (1.4-6.5) K/uL Lymph # (Auto) (1.2-3.4) K/uL [place] # (Auto) (0.11-0.59) K/uL Eos # (Auto) (0-0.5) K/uL Baso # (Auto) (0-0.2) K/uL Immature Gran # (Auto) (0.00-0.02) K/uL Sodium (136-145) mmol/L Potassium (3.5-5.1) mmol/L Chloride (98-107) mmol/L Carbon Dioxide (21-32) mmol/L Anion Gap (3-11) BUN (6-23) mg/dl Creatinine (0.6-1.2) mg/dl Est Cr Clr Drug Dosing ml/min Est GFR ( Amer) ml/min Est GFR (Non-Af Amer) ml/min BUN/Creatinine Ratio (10-20) Glucose (70-99(Fasting)) mg/dl Calcium (8.5-10.1) mg/dl Total Bilirubin (0.2-1.0) mg/dl AST (13-39) U/L ALT (7-52) U/L Alkaline Phosphatase (34-104) U/L Troponin I High Sens (0-14) pg/ml Total Protein (6.0-8.3) gm/dl Albumin (3.4-5.0) gm/dl Globulin (2.5-4.0) gm/dl Albumin/Globulin Ratio (0.9-2) Lipase (11-82) U/L Urine Color Yellow Urine Appearance Clear (Clear) Urine pH 7.0 (4.5-7.5) Ur Specific [place] 1.012 (1.000-1.030) Urine Protein Negative (Negative) Urine Glucose (UA) Negative (Negative) Urine Ketones Negative (Negative) Urine Blood Negative (Negative) Urine Nitrite Negative (Negative) Urine Bilirubin Negative (Negative) Urine Urobilinogen Negative (Negative) Ur Leukocyte Esterase 1+ H (Negative) Urine WBC (Auto) 5-10 H (0-5) /hpf Urine RBC (Auto) 0-4 (0-4) /hpf U Hyaline Cast (Auto) 1-5 (0-5) /lpf U Epithel Cells (Auto) 10-20 H (0-5) /lpf Urine Bacteria (Auto) Negative (Negative) SARS-CoV-2, RNA, NAAT NEGATIVE (NEGATIVE) Administered Medications Diclofenac Sodium (Diclofenac Sod 1% Gel 100 Gm Tube) 2 gm EXT QID THIEN Stop: 02/07/22 12:59 Last Admin: 01/08/22 21:00 Dose: 2 gm Documented by: [id number] Admin: 01/08/22 16:34 Dose: 2 gm Documented by: [id number] Admin: 01/08/22 13:42 Dose: Not Given Documented by: [id number] Duloxetine HCl (Duloxetine Hcl 30 Mg Cap) 90 mg PO QAM THIEN Stop: 02/08/22 08:59 Last Admin: 01/08/22 21:02 Dose: 90 mg Documented by: [id number] Gabapentin (Gabapentin 400 Mg Cap) 400 mg PO DAILY@0900,1500 THIEN Stop: 02/07/22 14:59 Last Admin: 01/08/22 16:38 Dose: Not Given Documented by: [id number] Gabapentin (Gabapentin 800 Mg Tab) 800 mg PO HS THIEN Stop: 02/07/22 20:59 Last Admin: 01/08/22 21:01 Dose: 800 mg Documented by: [id number] Lactated Ringer's (Lr) 1,000 mls @ 80 mls/hr IV .[id number] THIEN Stop: 02/07/22 11:54 Last Admin: 01/08/22 20:06 Dose: 80 mls/hr Documented by: [id number] Infusion: 01/08/22 20:06 Dose: 80 mls/hr Documented by: [id number] Admin: 01/08/22 12:58 Dose: 80 mls/hr Documented by: [id number] Ropinirole HCl (Ropinirole Hcl 1 Mg Tablet) 3 mg PO HS THIEN Stop: 02/07/22 20:59 Last Admin: 01/08/22 21:01 Dose: 3 mg Documented by: [id number] Ropinirole HCl (Ropinirole Hcl 2 Mg Tablet) 2 mg PO BID THIEN Stop: 02/07/22 20:59 Last Admin: 01/08/22 21:01 Dose: 2 mg Documented by: [id number] Discontinued Medications Acetaminophen (Acetaminophen 1000 Mg/100 Ml Iv) Confirm Administered Dose 1,000 mg IV .STK-MED ONE Stop: 01/08/22 10:37 Last Admin: 01/08/22 12:06 Dose: Not Given Documented by: [id number] Bupivacaine HCl (Bupivacaine 0.5 % 5 Mg/1 Ml Mpf 30ml Vial) Confirm Administered Dose 30 ml .ROUTE .STK-MED ONE Stop: 01/08/22 09:29 Last Admin: 01/08/22 12:07 Dose: Not Given Documented by: [id number] Famotidine (Pepcid 20mg Iv Push) 20 mg in 5 mls @ 2.5 mls/min IV NOW STA Stop: 01/08/22 03:11 Last Admin: 01/08/22 03:21 Dose: 2.5 mls/min Documented by: [id number] Cefoxitin Sodium (Mefoxin) 2,000 mg in 60 mls @ 100 mls/hr IV NOW STA Stop: 01/08/22 08:33 Last Infusion: 01/08/22 12:07 Dose: 0 mls/hr Documented by: [id number] Admin: 01/08/22 08:49 Dose: 100 mls/hr Documented by: [id number] Acetaminophen (Ofirmev) 1,000 mg in 100 mls @ 400 mls/hr IV NOW ONE Stop: 01/08/22 10:19 Last Infusion: 01/08/22 12:06 Dose: 0 mls/hr Documented by: [id number] Admin: 01/08/22 10:39 Dose: 400 mls/hr Documented by: [id number] Imaging Data Radiologist's Impression: Gallbladder Ultrasound 01/08/22 04:17 US gallbladder CLINICAL HISTORY: Epigastric pain. COMPARISON STUDY: CT of the abdomen and pelvis October 06, 2021. Right upper quadrant ultrasound July 09, 2020. FINDINGS: Liver is sonographically normal. There is no biliary ductal dilatation. The common bile duct measures 5 mm in caliber. Echogenic shadowing material within the gallbladder represent stones. The sonographic Cortez's sign was elicited. No gallbladder wall thickening is present. There is no pericholecystic fluid. Pancreatic body is normal. Head and tail are partially obscured. There is no right hydronephrosis. IMPRESSION: 1. Cholelithiasis. No sonographic evidence for acute cholecystitis. 2. No biliary ductal dilatation. 3. Partially obscured pancreas. ACT 112: Negative or not required by law. Electronically signed by: Cosmo Garrison M.D. 01/08/2022 6:50 AM Discharge Plan Visit Data Chief Complaint: Abdominal Pain ED Provider: Dereck Perkins Discharge Problem: Epigastric abdominal pain Patient Disposition: Admitted As Inpatient Discharge Instructions Interventions: ED Discharge Assessment Last Done: 01/08/22 08:55
--- NOTE | 2022-01-08 06:52 | Ultrasound Report ---
US gallbladder CLINICAL HISTORY: Epigastric pain. COMPARISON STUDY: CT of the abdomen and pelvis October 06, 2021. Right upper quadrant ultrasound No vember 2019. FINDINGS: Liver is sonographically normal. There is no biliary ductal dilatation. The common bile karen t measures 5 mm in caliber. Echogenic shadowing material within the gallbladder represent stones. The sonographic Cortez's sign was elicited. No gallbladder wall thickening is present. There is no peric holecystic fluid. Pancreatic body is normal. Head and tail are partially obscured. There is no right hydronephrosis. IMPRESSION: 1. Cholelithiasis. No sonographic evidence for acute cholecystitis. 2. No biliary ductal dilatation. 3. Partially obscured pancreas. ACT 112: Negative or not required by law. Electronically signed by: Cosmo Garrison M.D. 01/08/2022 6:50 AM
--- NOTE | 2022-01-08 07:25 | Emergency Department Note ---
ED Visit Note The patient was taken in signout from Dr. Farias at the change of shift. Please see that note for details. The patient was pending radiology read of ultrasound imaging. Patient had elevated LFTs. Patient also had a leukocytosis. She was reevaluated. Her pain was rated as a 2 out of 10. She did have a positive Cortez sign on physical examination. Ultrasound imaging does reveal a presence of gallstones and the patient did have a sonographic Cortez sign. There was no evidence of pericholecystic fluid or wall thickening. Given the symptoms, presentation, and diagnostic findings general surgery was consulted. Patient was evaluated in the ER. Dr. Rausch will take the patient to the OR for treatment of her gallbladder findings. .
[2022-01-08] MEDS ORDERED: cefOXitin 2,000 MG/60 ML BAG IV STA (07:58)
--- NOTE | 2022-01-08 08:02 | Surgery Consultation ---
Date of Consultation January 08, 2022 Assessment & Plan (1) Cholelithiasis: This is a 56yF with a PMH of Crohn's disease, smoker, tubal ligation, open appendectomy with bowel resection ', who presents to the [facility] ED on 01/08/22 with complaints of abdominal pain starting yesterday evening. Pain is mostly located in the epigastric and RUQ regions. In the ER she underwent a RUQ US that revealed + cholelithiasis, no ductal dilation. WBC 12. AST: 131, ALT 64, Tb: 0.5, lipase: 27. On exam patient's abdomen is soft with tenderness to palpation in the epigastric and RUQ. Given her presentation we will proceed with taking the patient to the OR for a laparoscopic cholecystectomy. Covid testing to be ordered. Patient is NPO with IVF and preop abx to be given. She is agreeable with the plan. Dr. Rausch has obtained surgical consent. We will proceed later this morning. Supervising Physician Co-Signing Physician Notes Dr Rausch- I evaluated pt in ER- will proceed with Lap ban History of Present Illness History of Present Illness This is a 56yF with a PMH of Crohn's disease, smoker, tubal ligation, open appendectomy with bowel resection ', who presents to the [facility] ED on 01/08/22 with complaints of abdominal pain. Patient states her pain started yesterday evening around 6:30-7:00pm after eating a hoagie, chips, and soda for dinner. She rated the pain a 10/10 at it's worse, located mostly in the upper mid abdomen, radiating to her R shoulder and back. She described the pain as squeezing and pressure. She tells me she has had episodes of pain similar to this before, but never this severe. She usually takes prilosec and it relieves her symptoms, but it did not work this time. Patient came into the ER due to worsening pain and she underwent a RUQ US that revealed + cholelithiasis, no ductal dilation. She reports + nausea, no emesis. No fevers/chills. Her baseline is diarrhea 2/2 history of crohn's disease. Her pain is improved some in the ER at rest, but she remains tender to palpation of the upper mid and R abdomen. Allergies Allergy/AdvReac Type Severity Reaction Status Date / Time venlafaxine Allergy Mild NAUSEA Verified 11/26/21 09:29 bupropion Allergy Unknown Nausea/Vomi Verified 11/26/21 09:29 ting morphine AdvReac Mild BURNING Verified 11/26/21 09:29 FEELING Home Medications Medication Instructions Recorded Confirmed Type epinephrine 0.3 mg/0.3 mL 0.3 mg SUBCUT ONCE PRN #2 ea 07/12/19 01/08/22 Rx injection, auto-injector (EpiPen 2-Navin) iron,carbonyl 65 mg-vitamin C 125 1 tab PO DAILY 10/22/20 01/08/22 History mg tablet,delayed release (Vitron-C) ibuprofen 800 mg tablet 800 mg PO TID PRN #90 tab 05/26/21 01/08/22 Rx lorazepam 0.5 mg tablet 0.5 mg PO TID PRN #90 tab 08/11/21 01/08/22 Rx omeprazole 40 mg capsule,delayed 40 mg PO QAM #90 cap 10/20/21 01/08/22 Rx release methocarbamol 500 mg tablet 500 mg PO TID PRN #90 tab 10/22/21 01/08/22 Rx gabapentin 400 mg capsule 400 mg PO .COMPLEX 30 Days #120 cap 11/15/21 01/08/22 Rx diclofenac sodium 1 % topical gel 2 g TOPICAL QID #100 g 11/16/21 01/08/22 Rx (Voltaren Arthritis Pain) mecobalamin (vitamin B12) 1,000 1,000 mcg PO DAILY 11/16/21 01/08/22 History mcg chewable tablet (B12 Active) thiamine HCl (vitamin B1) 500 mg 500 mg PO DAILY 11/16/21 01/08/22 History tablet duloxetine 30 mg capsule,delayed See Rx Instructions .ROUTE 11/26/21 01/08/22 History release .COMPLEX cap duloxetine 60 mg capsule,delayed See Rx Instructions .ROUTE 11/26/21 01/08/22 History release .COMPLEX cap ropinirole 2 mg tablet 2 mg PO BID 01/08/22 01/08/22 History ropinirole 3 mg tablet 3 mg PO HS 01/08/22 01/08/22 History Patient History Medical History Acid reflux disease Anxiety and depression Asthma Chronic pain syndrome Crohns disease Migraine headache Pulmonary emphysema Restless legs syndrome Surgical History H/O elbow surgery left H/O knee surgery left H/O tubal ligation H/O: hysterectomy History of lung surgery Family History Father Diabetes Hypertension Cardiac disorder Urinary bladder cancer Myocardial infarction Lung disease Heart disease Mother Kidney stones Anxiety Depression Arthritis Uncle Prostate cancer Unknown Breast cancer Grandmother (Maternal) Arthritis Grandfather (Maternal) Dementia Grandmother (Paternal) Heart disease Grandfather (Paternal) Gallbladder cancer Sister Stroke Kidney failure Social History Smoking Status: Current every day smoker Tobacco Type: Cigarettes Age Started Using Tobacco: 12; packs per day: 1.5; Years Smoked: 23; Cigarettes Per Day: 30; Second Hand Exposure: Yes ( A CHILD ); Hx Alcohol Use: Yes Alcohol type: wine Alcohol Intake Frequency: Monthly or Less Hx Substance Use: No Preferred Language: Samoan Communication Ability: Effective Visual Impairment: No Limitations Hearing Ability: Normal Renewals Specialist Required: No Beliefs That Will Affect Care: None marital status: Current Living Situation: Spouse current occupational status: disabled How many Children do You have: 1 Feels Safe at Home: Yes Childhood Exposure to Second-Hand Smoke: No caffeine: Yes (Coffee x 1 cup - Soda 1 per day.) during the past year weight has: remained stable Dental Care, Regularly: No Physical Activity Frequency: Daily Seatbelt Use: always Sunscreen Use: No Assistive Devices: Glasses Review of Systems Constitutional: no fever and no chills Respiratory: baseline SOB due to h/o smoking Cardiovascular: no chest pain Gastrointestinal: + abdominal pain, + bloating, + nausea and + diarrhea/loose stools (baseline for her); no vomiting Musculoskeletal: pain radiating into R shoulder and into back Physical Exam Physical Exam: awake/alert, no acute distress Respiratory: normal respiratory effort Gastrointestinal (Abdomen): Inspection/Auscultation: + abdominal surgical scar (from prior open appendectomy ); abdomen not distended Percussion/Palpation: + abdomen tender (Epigastric and RUQ pain) and abdomen soft Results & Data (MN) Vital Signs (Past 12 Hours) Vital Signs Temp Pulse Resp BP BP Pulse Ox 01/08/22 07:43 60 18 134/78 99 01/08/22 06:20 54 L 20 167/90 H 99 01/08/22 04:00 69 18 156/88 H 96 01/08/22 02:15 36.8 C 85 18 176/85 H 97 Diagnostic Findings US gallbladder CLINICAL HISTORY: Epigastric pain. COMPARISON STUDY: CT of the abdomen and pelvis October 06, 2021. Right upper quadrant ultrasound July 09, 2020. FINDINGS: Liver is sonographically normal. There is no biliary ductal dilatation. The common bile duct measures 5 mm in caliber. Echogenic shadowing material within the gallbladder represent stones. The sonographic Cortez's sign was elicited. No gallbladder wall thickening is present. There is no pericholecystic fluid. Pancreatic body is normal. Head and tail are partially obscured. There is no right hydronephrosis. IMPRESSION: 1. Cholelithiasis. No sonographic evidence for acute cholecystitis. 2. No biliary ductal dilatation. 3. Partially obscured pancreas. ACT 112: Negative or not required by law. Electronically signed by: Cosmo Garrison M.D. 01/08/2022 6:50 AM PG Care Time/CCT Total # of Minutes Spent Total Time Spent with Patient: Total time spent is greater than 50% in coordination of care (as documented) at patient's floor/unit and/or counseling patient: Coding Level of Care Code 60378 Initial Inpt Care Lvl 1 Diagnoses Cholelithiasis K80.20
[2022-01-08] MEDS ORDERED: MIDAZOLAM HCL 1 MG/ML 2ML VIAL ONE (08:26)
[2022-01-08] MEDS ORDERED: fentaNYL citrate 100 MCG/2 ML VIAL ONE ×2 (08:26→09:44)
[2022-01-08] MEDS ORDERED: PROPOFOL IV EMULSION 10 MG/ML 20 ML VIAL IV ONE (08:26)
[2022-01-08] MEDS ORDERED: LIDOCAINE 2% 2 ML VIAL/AMP(20MG/ML) INFIL ONE (08:27)
[2022-01-08] MEDS ORDERED: ROCURONIUM BROMIDE 10 MG/ML 5 ML VIAL IV ONE (08:27)
[2022-01-08] MEDS ORDERED: fentaNYL citrate 100 MCG/2 ML VIAL IV PRN (09:12)
[2022-01-08] MEDS ORDERED: ePHEDrine sulfate 50 MG/ML AMP IV PRN (09:12)
[2022-01-08] MEDS ORDERED: HYDROmorphone INJ 2 MG/ML SYR/VIAL IV PRN (09:12)
[2022-01-08] MEDS ORDERED: ATROPINE SULFATE 0.1 MG/ML 10ML SYR IV PRN (09:12)
[2022-01-08] MEDS ORDERED: DROPERIDOL 5 MG/2 ML VIAL IV PRN (09:12)
--- NOTE | 2022-01-08 09:12 | Anesthesiology Consultation ---
Date of Service January 08, 2022 Assessment & Plan ASA ASA3 Proposed Anesthesia Anesthesia Type: General Risk / Benefits Reviewed With: PT / POA / Parent / Guardian, Accepts Plan and Informed Consent Obtained History Surgery Operation Date: 01/08/22 09:00 Proposed Procedures p Laparoscopic Cholecystectomy - Jaun Rausch MD, FACS Height/Weight Height: 5 ft 6 in Weight: 90.1 kg Allergies Allergy/AdvReac Type Severity Reaction Status Date / Time venlafaxine Allergy Mild NAUSEA Verified 11/26/21 09:29 bupropion Allergy Unknown Nausea/Vomi Verified 11/26/21 09:29 ting morphine AdvReac Mild BURNING Verified 11/26/21 09:29 FEELING Medications Home Medications Medication Instructions Recorded Confirmed Last Taken epinephrine 0.3 mg/0.3 mL 0.3 mg SUBCUT ONCE PRN #2 ea 07/12/19 01/08/22 Unknown injection, auto-injector (EpiPen 2-Navin) iron,carbonyl 65 mg-vitamin C 125 1 tab PO DAILY 10/22/20 01/08/22 Unknown mg tablet,delayed release (Vitron-C) ibuprofen 800 mg tablet 800 mg PO TID PRN #90 tab 05/26/21 01/08/22 Unknown lorazepam 0.5 mg tablet 0.5 mg PO TID PRN #90 tab 08/11/21 01/08/22 Unknown omeprazole 40 mg capsule,delayed 40 mg PO QAM #90 cap 10/20/21 01/08/22 Unknown release methocarbamol 500 mg tablet 500 mg PO TID PRN #90 tab 10/22/21 01/08/22 Unknown gabapentin 400 mg capsule 400 mg PO .COMPLEX 30 Days #120 cap 11/15/21 01/08/22 Unknown diclofenac sodium 1 % topical gel 2 g TOPICAL QID #100 g 11/16/21 01/08/22 Unknown (Voltaren Arthritis Pain) mecobalamin (vitamin B12) 1,000 1,000 mcg PO DAILY 11/16/21 01/08/22 Unknown mcg chewable tablet (B12 Active) thiamine HCl (vitamin B1) 500 mg 500 mg PO DAILY 11/16/21 01/08/22 Unknown tablet duloxetine 30 mg capsule,delayed See Rx Instructions .ROUTE 11/26/21 01/08/22 Unknown release .COMPLEX cap duloxetine 60 mg capsule,delayed See Rx Instructions .ROUTE 11/26/21 01/08/22 Unknown release .COMPLEX cap ropinirole 2 mg tablet 2 mg PO BID 01/08/22 01/08/22 Unknown ropinirole 3 mg tablet 3 mg PO HS 01/08/22 01/08/22 Unknown Past Medical History Medical History Acid reflux disease Anxiety and depression Asthma Chronic pain syndrome Crohns disease Migraine headache Pulmonary emphysema Restless legs syndrome Exercise / Class Metabolic Activity II 4-5 Yardwork/Stairs/Walk up hill Past Family History Family History Father Diabetes Hypertension Cardiac disorder Urinary bladder cancer Myocardial infarction Lung disease Heart disease Mother Kidney stones Anxiety Depression Arthritis Uncle Prostate cancer Unknown Breast cancer Grandmother (Maternal) Arthritis Grandfather (Maternal) Dementia Grandmother (Paternal) Heart disease Grandfather (Paternal) Gallbladder cancer Sister Stroke Kidney failure Past Surgical History Surgical History H/O elbow surgery left H/O knee surgery left H/O tubal ligation H/O: hysterectomy History of lung surgery Past Anesthesia History No Hx of Anesthesia Complications and No Family Hx of Anesthesia Complications History of PONV No Hx of PONV and No Hx of Motion Sickness Social History Smoking Status: Current every day smoker tobacco type: cigarettes Smoking cigarettes per day: 30 Hx Alcohol Use: Yes Alcohol type: wine Hx Substance Use: No Review of Systems denies fever/cough/ colds/ chest pain/ +SOB at baseline denies ROMERO Physical Exam Vital Signs Last Vital Signs Temp 36.8 C 01/08/22 02:15 Pulse 52 L 01/08/22 08:45 Resp 18 01/08/22 08:45 BP 147/75 H 01/08/22 08:45 Pulse Ox 98 01/08/22 08:45 ENMT Mouth: no TMJ abnormality and no dentition abnormality Thyromental Distance: > or= 3.5 Finger Breadths Mallampati Class: II Neck neck extension not limited Respiratory normal respiratory effort; no respiratory distress Auscultation: lungs clear to auscultation bilaterally Cardiovascular Rate/Rhythm: regular rate and regular rhythm Neurologic moves all extremities Psychiatric Orientation: alert and oriented x 3 Testing Laboratory Results 01/08/22 02:50 01/08/22 02:50 Urine Color Yellow 01/08/22 03:00 Urine Appearance Clear (Clear) 01/08/22 03:00 Urine pH 7.0 (4.5-7.5) 01/08/22 03:00 Ur Specific Broussard 1.012 (1.000-1.030) 01/08/22 03:00 Urine Protein Negative (Negative) 01/08/22 03:00 Urine Glucose (UA) Negative (Negative) 01/08/22 03:00 Urine Ketones Negative (Negative) 01/08/22 03:00 Urine Nitrite Negative (Negative) 01/08/22 03:00 Ur Leukocyte Esterase 1+ (Negative) H 01/08/22 03:00 Urine WBC (Auto) 5-10 /hpf (0-5) H 01/08/22 03:00 Urine RBC (Auto) 0-4 /hpf (0-4) 01/08/22 03:00 U Hyaline Cast (Auto) 1-5 /lpf (0-5) 01/08/22 03:00 U Epithel Cells (Auto) 10-20 /lpf (0-5) H 01/08/22 03:00 Urine Bacteria (Auto) Negative (Negative) 01/08/22 03:00
[2022-01-08] MEDS ORDERED: BUPIVACAINE 0.5 % 5 MG/1 ML MPF 30ML VIAL ONE (09:28)
[2022-01-08] MEDS ORDERED: KETAMINE 50 MG/5 ML SYRINGE ONE (09:31)
[2022-01-08] MEDS ORDERED: DEXAMETHASONE SOD INJ 4 MG/ML VIAL ONE ×2 (09:36)
[2022-01-08] MEDS ORDERED: GLYCOPYRROLATE 0.2 MG/ML VIAL ONE (09:38)
[2022-01-08] MEDS ORDERED: NEOSTIGMINE METHYLSULFATE 1 MG/ML 10ML VIAL ONE (09:38)
[2022-01-08] MEDS ORDERED: ACETAMINOPHEN 1,000 MG/100 ML VIAL IV ONE (10:05)
--- NOTE | 2022-01-08 10:05 | Post Operative Brief Note ---
PG Immediate Post Op with CF Date of Surgery January 08, 2022 Pre & Post Diagnosis Operation Date: 01/08/22 09:00 Pre-Op Diagnosis: Cholelithiasis Post-Op Diagnosis: Cholelithiasis, chronic cholecystitis, biliary colic I identified the patient and participated in the time-out.: Yes Procedure Operation Date: 01/08/22 09:00 Actual Procedures p Laparoscopic Cholecystectomy - Jaun Rausch MD, FACS Surgeon Jaun Rausch MD, FACS [employer]argavi Cristobal Estimated Blood Loss 5 Findings Consistent with Post-Op Diagnosis Specimens Specimen Description: A.)Gallbladder and Contents
[2022-01-08] MEDS ORDERED: ACETAMINOPHEN 1000 MG/100 ML IV IV ONE (10:36)
[2022-01-08] MEDS ORDERED: ONDANSETRON INJ 2 MG/ML 2 ML VIAL IV PRN (11:00)
--- NOTE | 2022-01-08 11:14 | Hospitalist Consultation ---
Date of Consultation January 08, 2022 Assessment & Plan (1) Cholelithiasis: Actue- POD #0 from laparoscopic cholecystectomy by Dr. rausch - Pain control per primary service- rescue Narcan ordered for over sedation PRN - ABX per primary service - IVF per primary service - Diet per primary service - Drain management per primary service - Transfusion needs per primary service - VTE prophylaxis per primary service- SCDs in place (2) Chronic pain syndrome: Related to cervical and lower back pain- follows with rheumatology - continue with gabapentin and duloxetine (3) Arthritis: Hold NSAIDs for now follow renal function - other pain control post operatively (4) Anxiety and depression: Continue duloxetine and PRN ativan - patient reports that she takes 90 mg daily - appears this was increased from 60-90mg daily in 2019 - continue with dual benefit for her RLS as well (5) Acid reflux disease: GERD with Elias's esophagus noted on EGD from 09/10- symptoms reported as controlled by patient - Continue PPI daily follows with [facility] - advance diet as tolerated per primary surgical team (6) Restless legs syndrome: Continue ropinirole and gabapentin and iron supplementation (7) Emphysema lung: Without PFTs and only with evidence on pulmonary imaging/CT scan of chest- on no therapy as outpatient - recommend PFTs and stop smoking - declined patch at this time- follow can order if needed (8) Smoker: Continues to smoke 1/2 ppd- denies any dyspnea or anginal like symptoms - discussed with patient with her changes noted on imaging and should get pfts performed and work on smoking cessation Supervising Physician Co-Signing Physician Notes Patient seen and examined at bedside. Obtained a history and physical examination during my face to face encounter. I reviewed above note and agree with it. D/W Patient and APC Kristan, plan of care and answered all of there questions. Primary service consulted medicine for management of her medical problems. Will resume her duloxetine for her anxiety and depression History of Present Illness Attending Physician: Jaun Rausch MD, FACS History of Present Illness 56 YOF with medical history of: Elias's- DX with EGD and biopsy, RLS, Anxiety/Depression, Smoker, DJD cervical/Lumbar, COVID 19 (12/09). Patient presented to the EMD today early in the morning for abdominal pain and was noted to have acute cholelithiasis and was taken to the OR with Surgery for laparoscopic Cholecystectomy. Post-surgical medical consult was placed by primary surgical team for medical management. She underwent General Anesthesia with EBL 5ml reported. Patient was evaluated in recovery room following her procedure- she awakens briskly to voice and is appropriate and able to participate in the interview- pain controlled and she is without any postoperative nausea at this time. She is on room air, with adequate respirations, and hemodynamics are very reasonable. No drains. Lap sites are without pain/or drainage. Patient is FULL CODE Recommendations - Cymbalta- 90 mg daily - Hold NSAID as you are doing- follow renal function in am - Rescue Narcan ordered if needed for over sedation - Continue PPI as you are doing - Defer to Surgical Team for diet advancement - Defer to Surgery for VTE prophylaxis Allergies Allergy/AdvReac Type Severity Reaction Status Date / Time venlafaxine Allergy Mild NAUSEA Verified 11/26/21 09:29 bupropion Allergy Unknown Nausea/Vomi Verified 11/26/21 09:29 ting morphine AdvReac Mild BURNING Verified 11/26/21 09:29 FEELING Home Medications Medication Instructions Recorded Confirmed Type epinephrine 0.3 mg/0.3 mL 0.3 mg SUBCUT ONCE PRN #2 ea 07/12/19 01/08/22 Rx injection, auto-injector (EpiPen 2-Navin) iron,carbonyl 65 mg-vitamin C 125 1 tab PO DAILY 10/22/20 01/08/22 History mg tablet,delayed release (Vitron-C) ibuprofen 800 mg tablet 800 mg PO TID PRN #90 tab 05/26/21 01/08/22 Rx lorazepam 0.5 mg tablet 0.5 mg PO TID PRN #90 tab 08/11/21 01/08/22 Rx omeprazole 40 mg capsule,delayed 40 mg PO QAM #90 cap 10/20/21 01/08/22 Rx release methocarbamol 500 mg tablet 500 mg PO TID PRN #90 tab 10/22/21 01/08/22 Rx gabapentin 400 mg capsule 400 mg PO .COMPLEX 30 Days #120 cap 11/15/21 01/08/22 Rx diclofenac sodium 1 % topical gel 2 g TOPICAL QID #100 g 11/16/21 01/08/22 Rx (Voltaren Arthritis Pain) mecobalamin (vitamin B12) 1,000 1,000 mcg PO DAILY 11/16/21 01/08/22 History mcg chewable tablet (B12 Active) thiamine HCl (vitamin B1) 500 mg 500 mg PO DAILY 11/16/21 01/08/22 History tablet duloxetine 30 mg capsule,delayed See Rx Instructions .ROUTE 11/26/21 01/08/22 History release .COMPLEX cap duloxetine 60 mg capsule,delayed See Rx Instructions .ROUTE 11/26/21 01/08/22 History release .COMPLEX cap ropinirole 2 mg tablet 2 mg PO BID 01/08/22 01/08/22 History ropinirole 3 mg tablet 3 mg PO HS 01/08/22 01/08/22 History hydrocodone 5 mg-acetaminophen 325 1 tab PO Q4H PRN #30 tab 01/09/22 Rx mg tablet Patient History Medical History Acid reflux disease Anxiety and depression Asthma Chronic pain syndrome Crohns disease Migraine headache Pulmonary emphysema Restless legs syndrome Surgical History H/O elbow surgery left H/O knee surgery left H/O tubal ligation H/O: hysterectomy History of lung surgery Family History Father Diabetes Hypertension Cardiac disorder Urinary bladder cancer Myocardial infarction Lung disease Heart disease Mother Kidney stones Anxiety Depression Arthritis Uncle Prostate cancer Unknown Breast cancer Grandmother (Maternal) Arthritis Grandfather (Maternal) Dementia Grandmother (Paternal) Heart disease Grandfather (Paternal) Gallbladder cancer Sister Stroke Kidney failure Social History Smoking Status: Current every day smoker Tobacco Type: Cigarettes Age Started Using Tobacco: 12; packs per day: 1.5; Years Smoked: 23; Cigarettes Per Day: 1.5 packs; Second Hand Exposure: Yes ( A CHILD ); Hx Alcohol Use: Yes Alcohol type: wine and hard liquor Alcohol Intake Frequency: Monthly or Less Hx Substance Use: No Preferred Language: Japanese Communication Ability: Effective Visual Impairment: No Limitations Hearing Ability: Normal Podiatric Surgeon Required: No Beliefs That Will Affect Care: None marital status: Current Living Situation: Spouse current occupational status: disabled How many Children do You have: 1 Feels Safe at Home: Yes Childhood Exposure to Second-Hand Smoke: No caffeine: Yes (Coffee x 1 cup - Soda 1 per day.) during the past year weight has: remained stable Dental Care, Regularly: No Physical Activity Frequency: Daily Seatbelt Use: always Sunscreen Use: No Assistive Devices: Glasses Review of Systems Review of Systems: REVIEW OF SYSTEMS: Constitutional: No fever, sweats or chills Eyes: No diplopia, no worsening or blurred vision ENT: normal hearing, no trouble swallowing Respiratory: No cough, sputum, dyspnea at rest or on exertion Cardiovascular: No chest pain, tightness or palpitations Abdomen: (+) pain to abdomen- improved, NO current nausea, vomiting, diarrhea or constipation Musculoskeletal: (+) back and neck pain chronic, NO calf pain, swelling Neurologic: No weakness, numbness/tingling, or balance problems Psychiatric: (+) anxiety or depression Skin: No rash or itch Physical Exam Physical Exam: PHYSICAL EXAM: General: awake, oriented, no apparent distress Head: Normocephalic, atraumatic ENT: PERRL, EOMI, no pharyngeal exudate, mucous membranes dry Neuro: AAO x 3, speech clear and appropriate, strength intact bilaterally 5/5, sensation intact and equal all extremities and dermatomes, no pronator drift Chest: equal rise and fall of the chest, no accessory muscle use, no heaves or thrills, Clear to auscultation, on room air, Cardiac: Regular rate and rhythm, telemetry reviewed-NSR no ectopy, skin warm dry, cap refill <3 seconds, peripheral pulses +2 no JVD, no murmur, no edema GI: Hypoactive bowel sounds, lap sites x3 with surgical glue intact and no drainage or erythema, : postoperative void pending Extremities: Normal inspection, no peripheral edema or erythema, calfs nontender to palpation Psych: Normal mood and affect Skin: no rash or erythema Results & Data Results & Data ([facility]) Vital Signs (Past 12 Hours) Vital Signs Temp Pulse Pulse Resp BP BP BP 01/08/22 10:50 54 L 17 154/74 H 01/08/22 10:40 80 18 158/78 H 01/08/22 10:30 74 13 149/87 H 01/08/22 10:23 36.1 C L 72 15 161/88 H 01/08/22 08:45 52 L 18 147/75 H 01/08/22 07:43 60 18 134/78 01/08/22 06:20 54 L 20 167/90 H 01/08/22 04:00 69 18 156/88 H 01/08/22 02:15 36.8 C 85 18 176/85 H Pulse Ox 01/08/22 10:50 97 01/08/22 10:40 98 01/08/22 10:30 100 01/08/22 10:23 97 01/08/22 08:45 98 01/08/22 07:43 99 01/08/22 06:20 99 01/08/22 04:00 96 01/08/22 02:15 97 Laboratory Results Abnormal lab results 01/08/22 01/08/22 01/08/22 Range/Units 02:50 02:50 03:00 WBC 12.64 H (4.8-10.8) K/uL RDW Std Deviation 47.0 H (36.4-46.3) fL MPV 10.8 H (7.4-10.4) fL Neut # (Auto) 8.98 H (1.4-6.5) K/uL [place] # (Auto) 0.80 H (0.11-0.59) K/uL Immature Gran # (Auto) 0.05 H (0.00-0.02) K/uL BUN/Creatinine Ratio 25.0 H (10-20) Glucose 108 H (70-99(Fasting)) mg/dl AST 131 H (13-39) U/L ALT 64 H (7-52) U/L Ur Leukocyte Esterase 1+ H (Negative) Urine WBC (Auto) 5-10 H (0-5) /hpf U Epithel Cells (Auto) 10-20 H (0-5) /lpf Diagnostic Findings Gallbladder Ultrasound 01/08/22 04:17 US gallbladder CLINICAL HISTORY: Epigastric pain. COMPARISON STUDY: CT of the abdomen and pelvis October 06, 2021. Right upper quadrant ultrasound July 09, 2020. FINDINGS: Liver is sonographically normal. There is no biliary ductal dilatation. The common bile duct measures 5 mm in caliber. Echogenic shadowing material within the gallbladder represent stones. The sonographic Cortez's sign was elicited. No gallbladder wall thickening is present. There is no pericholecystic fluid. Pancreatic body is normal. Head and tail are partially obscured. There is no right hydronephrosis. IMPRESSION: 1. Cholelithiasis. No sonographic evidence for acute cholecystitis. 2. No biliary ductal dilatation. 3. Partially obscured pancreas. ACT 112: Negative or not required by law. Electronically signed by: Cosmo Garrison M.D. 01/08/2022 6:50 AM Medications Administered Home Medications epinephrine 0.3 mg/0.3 mL injection, auto-injector (EpiPen 2-Navin) 0.3 mg SUBCUT ONCE PRN #2 ea 07/12/19 [Rx Confirmed 01/08/22] iron,carbonyl 65 mg-vitamin C 125 mg tablet,delayed release (Vitron-C) 1 tab PO DAILY 10/22/20 [History Confirmed 01/08/22] ibuprofen 800 mg tablet 800 mg PO TID PRN #90 tab 05/26/21 [Rx Confirmed 01/08/22] lorazepam 0.5 mg tablet 0.5 mg PO TID PRN #90 tab 08/11/21 [Rx Confirmed 01/08/22] omeprazole 40 mg capsule,delayed release 40 mg PO QAM #90 cap 10/20/21 [Rx Confirmed 01/08/22] methocarbamol 500 mg tablet 500 mg PO TID PRN #90 tab 10/22/21 [Rx Confirmed 01/08/22] gabapentin 400 mg capsule 400 mg PO .COMPLEX 30 Days #120 cap 11/15/21 [Rx Confirmed 01/08/22] diclofenac sodium 1 % topical gel (Voltaren Arthritis Pain) 2 g TOPICAL QID #100 g 11/16/21 [Rx Confirmed 01/08/22] mecobalamin (vitamin B12) 1,000 mcg chewable tablet (B12 Active) 1,000 mcg PO DAILY 11/16/21 [History Confirmed 01/08/22] thiamine HCl (vitamin B1) 500 mg tablet 500 mg PO DAILY 11/16/21 [History Confirmed 01/08/22] duloxetine 30 mg capsule,delayed release See Rx Instructions .ROUTE .COMPLEX cap 11/26/21 [History Confirmed 01/08/22] duloxetine 60 mg capsule,delayed release See Rx Instructions .ROUTE .COMPLEX cap 11/26/21 [History Confirmed 01/08/22] ropinirole 2 mg tablet 2 mg PO BID 01/08/22 [History Confirmed 01/08/22] ropinirole 3 mg tablet 3 mg PO HS 01/08/22 [History Confirmed 01/08/22] Active Medications Atropine Sulfate (Atropine Sulfate 0.1 Mg/Ml 10ml Syr) 0.5 mg IV Q1M PRN PRN Reason: PACU Use-HR<40 &/or Bradycardi Stop: 01/08/22 17:12 Droperidol (Droperidol 5 Mg/2 Ml Vial) 0.625 mg IV ONE PRN PRN Reason: nausea Stop: 02/07/22 09:11 Ephedrine Sulfate (Ephedrine Sulfate 50 Mg/Ml Amp) 5 mg IV Q5M PRN PRN Reason: PACU Use Only-SBP<90 mmHg Stop: 01/08/22 17:12 Fentanyl Citrate (Fentanyl Citrate 100 Mcg/2 Ml Vial) 50 mcg IV Q5M PRN PRN Reason: PACU Use Only-Pain Stop: 01/08/22 17:12 Hydromorphone HCl (Hydromorphone Inj 2 Mg/Ml Syr/Vial) 0.5 mg IV Q5M PRN PRN Reason: PACU Use Only-Pain Stop: 01/08/22 17:12 Ondansetron HCl (Ondansetron Inj 2 Mg/Ml 2 Ml Vial) 4 mg IV Q6H PRN PRN Reason: Nausea And Vomiting Stop: 02/07/22 10:59 ECG Additional Comments: Normal sinus rhythm Normal ECG When compared with ECG of 06-OCT-2021 14:25, No significant change was found PG Care Time/CCT Total # of Minutes Spent Total Time Spent with Patient: Total time spent is greater than 50% in coordination of care (as documented) at patient's floor/unit and/or counseling patient: Coding Level of Care Code 38554 Office/OBS Consult Lvl 3 Diagnoses Cholelithiasis K80.20 Chronic pain syndrome G89.4 Arthritis M19.90 Anxiety and depression F41.9; F32.9 Acid reflux disease K21.9 Restless legs syndrome G25.81 Emphysema lung J43.9 Smoker F17.200
[2022-01-08] MEDS ORDERED: HYDROmorphone INJ 1 MG/ML SYRINGE IV PRN (11:55)
[2022-01-08] MEDS ORDERED: LORazepam 0.5 MG TAB PO PRN (11:55)
[2022-01-08] MEDS ORDERED: ACETAMINOPHEN 325 MG TAB PO PRN (11:55)
[2022-01-08] MEDS ORDERED: HYDROmorphone INJ 0.5 MG/0.5 ML SYR IV PRN (11:55)
[2022-01-08] MEDS ORDERED: HYDROCODONE/ACETAMOPHEN 5/325MG TAB PO PRN ×2 (11:55)
[2022-01-08] MEDS ORDERED: NALOXONE HCL 0.4 MG/1 ML VIAL/CARP IV PRN (11:55)
--- NOTE | 2022-01-08 12:37 | Anesthesiology Progress Note ---
Date of Service January 08, 2022 Anesthesia Post Procedure Vital Signs Vital Signs: Temp Pulse Pulse Pulse Resp BP BP 01/08/22 12:19 36.2 C L 57 L 16 01/08/22 11:55 36.4 C L 50 L 16 01/08/22 11:34 52 L 17 01/08/22 11:30 48 L 17 01/08/22 11:20 52 L 17 01/08/22 11:10 36.1 C L 55 L 17 01/08/22 11:00 57 L 15 01/08/22 10:50 54 L 17 01/08/22 10:40 80 18 01/08/22 10:30 74 13 01/08/22 10:23 36.1 C L 72 15 01/08/22 08:45 52 L 18 147/75 H 01/08/22 07:43 60 18 134/78 01/08/22 06:20 54 L 20 167/90 H 01/08/22 04:00 69 18 156/88 H 01/08/22 02:15 36.8 C 85 18 176/85 H BP Pulse Ox Pulse Ox 01/08/22 12:19 146/80 H 96 01/08/22 11:55 126/75 90 98 01/08/22 11:34 143/75 H 97 01/08/22 11:30 128/73 93 01/08/22 11:20 143/75 H 97 01/08/22 11:10 128/68 97 01/08/22 11:00 141/70 H 96 01/08/22 10:50 154/74 H 97 01/08/22 10:40 158/78 H 98 01/08/22 10:30 149/87 H 100 01/08/22 10:23 161/88 H 97 01/08/22 08:45 98 01/08/22 07:43 99 01/08/22 06:20 99 01/08/22 04:00 96 01/08/22 02:15 97 Pain Intensity Abdomen: Pain Intensity: 1 Transfer of Care Handoff Completed per policy Notes Mental Status: alert / awake / arousable and participated in evaluation Patient Amnestic to Procedure: Yes Nausea / Vomiting: adequately controlled Pain: adequately controlled Airway Patency, RR, SpO2: stable & adequate BP & HR: stable & adequate Hydration State: stable & adequate Anesthetic Complications: no major complications apparent and Pt Satisfied with anesthetic care
[2022-01-08] MEDS: LACTATED RINGER'S 1,000 ML IV SCH ×2 (12:58→20:06)
--- NOTE | 2022-01-08 13:19 | Electrocardiogram Report ---
Test Reason : Blood Pressure : / mmHG Vent. Rate : 076 BPM Atrial Rate : 076 BPM P-R Int : 144 ms QRS Dur : 090 ms QT Int : 392 ms P-R-T Axes : 066 056 044 degrees QTc Int : 441 ms Normal sinus rhythm Normal ECG When compared with ECG of 06-OCT-2021 14:25, No significant change was found Confirmed by Mynor Marcum ([id number]) on 01/08/2022 1:18:41 PM Referred By: REFERRED SELF Confirmed By:Mynor Marcum
[2022-01-08] MEDS: DICLOFENAC SOD 1% GEL 100 GM TUBE EXT SCH ×3 (13:42→21:00)
[2022-01-08] MEDS: GABAPENTIN 400 MG CAP PO SCH (16:38)
--- NOTE | 2022-01-08 20:12 | Operative Report (OR) ---
DATE OF OPERATION: 01/08/2022. NAME OF OPERATION: Laparoscopic cholecystectomy. PREOPERATIVE DIAGNOSIS: Biliary colic. POSTOPERATIVE DIAGNOSES: Biliary colic with chronic cholecystitis. STAFF SURGEON: Jaun Rausch MD. REGIONAL CONSTRUCTION MANAGER: Rivka Cristobal PA-C. ANESTHESIA: General. DESCRIPTION OF PROCEDURE: The patient was brought in the operating room and placed on the operating table in supine position. Her abdomen was prepped and draped in the usual fashion. A 0.5% plain Mar aaron was used to anesthetize all incisions. Incision was made in the umbilicus, carrying dissection down to the fascia, placing a Veress needle producing pneumoperitoneum. An 11 mm port was placed at this level and under visualization after appropriate pneumoperitoneum three 5 mm ports were placed, one cephalad and two laterally. The patient was placed in reverse Trendelenburg position and rotated to the left. The gallbladder was chronically thickened. It was retracted and then dissection lucas ed out to the rod hepatis, identifying the cystic duct and cystic artery. These were clipped and t ransected. The gallbladder was then dissected away from the liver bed in the usual fashion, placed i n an Endobag. After appropriate hemostasis and irrigation, the Endobag was removed through the umbil ical site. All ports were removed. The fascia at the umbilicus closed using 0 Vicryl suture. The s kin was reapproximated using subcuticular 4-0 Monocryl with Dermabond. My print shop assistant helped with prep ping, draping, removal of the gallbladder and closure of the wounds. Job ID: [id number]
[2022-01-08] MEDS ORDERED: GABAPENTIN 800 MG TAB PO SCH (21:00)
[2022-01-08] MEDS ORDERED: rOPINIRole HCL 1 MG TABLET PO SCH (21:00)
[2022-01-08] MEDS: rOPINIRole HCL 2 MG TABLET PO SCH (21:01)
[2022-01-09 06:07] LABS: Basophils # (auto) 0.01 K/uL (0-0.2); Basophils % (auto) 0.1 %; Eosinophils # (auto) 0.02 K/uL (0-0.5); Eosinophils % (auto) 0.2 %; Hematocrit (blood only) 47.2 % (37-47); Hemoglobin 15.7 g/dL (12.0-16.0); Immature Granulocytes # (auto) 0.02 K/uL (0.00-0.02); Immature Granulocytes % (auto) 0.2 %; Lymphocytes # (auto) 2.66 K/uL (1.2-3.4); Lymphocytes % (auto) 21.5 %; Mean Corpuscular Hemoglobin 30.7 pg (25-34); Mean Corpuscular Hgb Conc 33.3 g/dL (32-36); Mean Corpuscular Volume 92.4 fL (80-100); Mean Platelet Volume 10.6 fL (7.4-10.4); Monocytes % (auto) 5.6 %; Neutrophils # (auto) 8.99 K/uL (1.4-6.5); Neutrophils % (auto) 72.4 %; Platelet Count 253 K/uL (130-400); RDW Coefficient of Variation 14.1 % (11.5-14.5); RDW Standard Deviation 47.6 fL (36.4-46.3); Red Blood Count 5.11 M/uL (4.2-5.4)
--- NOTE | 2022-01-09 06:30 | Surgery Progress Note ---
Date of Service January 09, 2022 Assessment & Plan (1) History of laparoscopic cholecystectomy: Plan: Patient doing very well for discharge home today Follow-up in the surgical clinic within 1 to 2 weeks Prescription for pain medication sent Admission and Anticipated Discharge Date Admission Date: January 08, 2022 Results & Data ([facility]) Vital Signs (Past 12 Hours) Vital Signs Temp Pulse Resp BP Pulse Ox 01/09/22 03:54 36.5 C 58 L 16 149/76 H 98 01/09/22 00:17 36.6 C 67 16 125/75 96 PG Care Time/CCT Total # of Minutes Spent Total Time Spent with Patient: Total time spent is greater than 50% in coordination of care (as documented) at patient's floor/unit and/or counseling patient: Coding Level of Care Code None Diagnoses History of laparoscopic cholecystectomy Z90.49
[2022-01-09 06:39] LABS: Albumin Globulin Ratio 1.3 (0.9-2); Albumin Level 3.9 gm/dl (3.4-5.0); BUN Creatinine Ratio 19.4 (10-20); Bilirubin,Total 0.5 mg/dl (0.2-1.0); Calcium 9.4 mg/dl (8.5-10.1); Est GFR (Non-African American) 100.1 ml/min; Globulin 2.9 gm/dl (2.5-4.0); Potassium 4.1 mmol/L (3.5-5.1); Total Protein 6.8 gm/dl (6.0-8.3)
[2022-01-09] MEDS ORDERED: PANTOprazole 40 MG TAB PO SCH (09:00)
[2022-01-09] MEDS ORDERED: THIAMINE HCL 100 MG TAB PO SCH (09:00)
[2022-01-09] MEDS ORDERED: DULoxetine HCL 30 MG CAP PO SCH (09:00)
[2022-01-09] MEDS ORDERED: CEROVITE ADV FORMULA TAB PO SCH (09:00)
[2022-01-09] MEDS: GABAPENTIN 400 MG CAP PO SCH (09:19)
[2022-01-09] MEDS: DICLOFENAC SOD 1% GEL 100 GM TUBE EXT SCH (09:19)
[2022-01-09] MEDS: rOPINIRole HCL 2 MG TABLET PO SCH (09:26)
--- NOTE | 2022-01-09 16:43 | Discharge Summary (DS) ---
DATE OF ADMISSION: 01/08/2022. DATE OF DISCHARGE: 01/09/2022. PRINCIPAL DIAGNOSIS: Acute cholecystitis. PROCEDURE: The patient underwent laparoscopic cholecystectomy. HISTORY OF PRESENT ILLNESS: The patient is a 56-year-old female presenting to the Emergency Room wit h acute abdominal pain and found on ultrasound to have distended stone filled gallbladder with patien t suspected of having biliary colic. She was taken to the operating room where she underwent a lapar oscopic cholecystectomy showing evidence of chronic cholecystitis. She did very well from her operat ion and is felt stable for discharge home to be followed in the surgical clinic within 1-2 weeks. Job ID: [id number]
== END 2022-01-09 12:20 | disposition home or self-care (01) ==
LOC: ED 02:04 → OR 08:58 → 3N 08:58
DX: Z79.899 Other long term (current) drug therapy; F17.210 Nicotine dependence, cigarettes, uncomplicated; Z88.5 Allergy status to narcotic agent; Z88.8 Allergy status to other drugs, medicaments and biological substances; K80.11 Calculus of gallbladder with chronic cholecystitis with obstruction

== ENCOUNTER 2023-06-09 09:19 | Observation (INO) ==
--- NOTE | 2023-06-09 10:19 | Emergency Department Note ---
History of Present Illness General Chief Complaint: Rib Injury/Pain Stated Complaint: L RIB PAIN, ILLNESS Time Seen by Provider: 06/09/23 09:31 History of Present Illness Provider Complaint: + cough Onset (ago): 3 day(s) Duration: + intermittent Maximum Pain Intensity: 2 Able to tolerate fluids by mouth: Yes Associated symptoms: + chills, + myalgias, + nasal congestion, + cough, + chest pain (Left-sided), + shortness of breath, + nausea, + vomiting and + diarrhea Home Medications Medication Instructions Recorded Confirmed Type epinephrine 0.3 mg/0.3 mL 0.3 mg (0.3 mL) subcut ONCE PRN 07/12/19 06/06/23 Rx injection, auto-injector (EpiPen anaphylaxis #2 ea 2-Navin) iron,carbonyl 65 mg-vitamin C 125 1 tab PO DAILY 10/22/20 06/06/23 History mg tablet,delayed release (Vitron-C) diclofenac sodium 1 % topical gel 2 g topical QID #100 grams 11/16/21 06/06/23 Rx (Voltaren Arthritis Pain) mecobalamin (vitamin B12) 1,000 1,000 mcg PO DAILY 11/16/21 06/06/23 History mcg chewable tablet (B12 Active) thiamine HCl (vitamin B1) 500 mg 500 mg PO DAILY 11/16/21 06/06/23 History tablet lorazepam 0.5 mg tablet 0.5 mg PO TID PRN anxiety #90 tabs 07/20/22 06/06/23 Rx ibuprofen 800 mg tablet 800 mg PO TID PRN pain #90 tabs 09/23/22 06/06/23 Rx omeprazole 40 mg capsule,delayed 40 mg PO QAM #90 caps 03/06/23 06/09/23 Rx release ropinirole 2 mg tablet 2 mg PO BID restless legs #180 tabs 03/10/23 06/09/23 Rx ropinirole 3 mg tablet 3 mg PO HS restless legs #90 tabs 05/15/23 06/09/23 Rx apixaban 5 mg tablet (Eliquis) See Rx Instructions .Route 06/09/23 Rx .COMPLEX #74 tabs colesevelam 625 mg tablet 625 mg PO BIDWMEAL 06/09/23 06/09/23 History gabapentin 400 mg capsule See Rx Instructions .Route .COMPLEX 06/09/23 06/09/23 History oxycodone 5 mg tablet 5 mg PO Q8H PRN pain #11 tabs 06/09/23 Rx sertraline 100 mg tablet 0 mg PO DAILY 06/09/23 06/09/23 History Allergies Allergy/AdvReac Type Severity Reaction Status Date / Time venlafaxine Allergy Mild NAUSEA Verified 06/06/23 09:12 bupropion Allergy Unknown Nausea/Vomi Verified 06/06/23 09:12 ting morphine AdvReac Mild BURNING Verified 06/06/23 09:12 FEELING Past Med/Surg History Medical History Acid reflux disease Anxiety and depression Asthma Cholelithiasis Chronic pain syndrome Crohns disease Migraine headache Pulmonary emphysema Restless legs syndrome Surgical History H/O elbow surgery left H/O knee surgery left H/O shoulder surgery H/O tubal ligation H/O: hysterectomy History of lung surgery Hx laparoscopic cholecystectomy (01/07/22) Laparoscopic cholecystectomy. Dr. Rausch Family History Father Diabetes Hypertension Cardiac disorder Urinary bladder cancer Myocardial infarction Lung disease Heart disease Mother Kidney stones Anxiety Depression Arthritis Uncle Prostate cancer Unknown Breast cancer Grandmother (Maternal) Arthritis Grandfather (Maternal) Dementia Grandmother (Paternal) Heart disease Grandfather (Paternal) Gallbladder cancer Sister Stroke Kidney failure Social History Smoking Status: Current every day smoker Tobacco Type: Cigarettes Age Started Using Tobacco: 12; packs per day: 1.5; Cigarettes Per Day: 1.5 packs; Second Hand Exposure: Yes ( A CHILD ); Do You Dip or Chew Tobacco: No; Hx Alcohol Use: Yes Alcohol type: wine and hard liquor Alcohol Intake Frequency: Monthly or Less Hx Substance Use: No Preferred Language: [place]an Communication Ability: Effective Visual Impairment: No Limitations Hearing Ability: Normal Algorithm Developer Required: No Beliefs That Will Affect Care: None marital status: Current Living Situation: Spouse current occupational status: disabled How many Children do You have: 1 Feels Safe at Home: Yes Childhood Exposure to Second-Hand Smoke: No Diet: regular caffeine: Yes (Coffee x 1 cup - Soda 1 per day.) during the past year weight has: remained stable Dental Care, Regularly: No Physical Activity Frequency: Daily Seatbelt Use: always Sunscreen Use: No Assistive Devices: Glasses Physical Exam Vital Signs: Vital Signs - 24 hr 06/09/23 09:20 06/09/23 09:54 06/09/23 10:29 Temperature 37.2 C Temperature Source Oral Pulse Rate 94 H 94 H 96 H Pulse Rate [Bilate ral] Respiratory Rate 20 20 Respiratory Effort / Characteristics Non-Labored Respiratory Depth Normal Respiratory Patter n Regular Blood Pressure 143/86 H Blood Pressure [Ri ght Arm] Blood Pressure Martina n 105 Blood Pressure Martina n [Right Arm] Pulse Oximetry 93 93 Oxygen Delivery Me thod Room Air Room Air Sepsis Recent Feve r Within 48 Hours Yes Sepsis New/Unexpla ined Change in Men cydney Status N/A Sepsis Action Take n by Nursing No Action Required 06/09/23 12:00 06/09/23 14:00 Temperature Temperature Source Pulse Rate Pulse Rate [Bilate ral] 85 105 H Respiratory Rate 20 26 H Respiratory Effort / Characteristics Respiratory Depth Normal Respiratory Patter n Blood Pressure Blood Pressure [Ri ght Arm] 110/69 126/91 Blood Pressure Martina n Blood Pressure Martina n [Right Arm] 82 102 Pulse Oximetry 96 93 Oxygen Delivery Me thod Room Air Room Air Sepsis Recent Feve r Within 48 Hours Sepsis New/Unexpla ined Change in Men cydney Status Sepsis Action Take n by Nursing Physical Exam: Physical Exam GENERAL: oriented to person, place, and time. appears well-developed and well- nourished. HENT: Exam performed. - Head: Normocephalic and atraumatic. EYES: Conjunctivae and EOM are normal. Right eye exhibits no discharge. Left eye exhibits no discharge. No scleral icterus. NECK: Normal range of motion. Neck supple. No JVD present. CV: Normal rate, regular rhythm, normal heart sounds and intact distal pulses. There is no peripheral edema. Palpable radial pulses bue. PULM/CHEST: Effort normal and breath sounds normal. No respiratory distress. No stridor. no wheezes. no rales. ABD: The abdomen is soft. There is no tenderness. NEURO: Motor and sensation grossly intact. SKIN: Skin is warm and dry. He is not diaphoretic. PSYCH: normal mood and affect. Behavior is normal. Judgment and thought content normal. Course Course 09: The patient was evaluated in room B8. A complete history and physical exam was performed Cardiac monitoring: An order was placed for continuous cardiac monitoring. The monitor shows a rate of 90 with sinus rhythm interpreted by me 1155: Vital signs stable. Labs within normal limits. D-dimer elevated. Will obtain CT of the chest. 1340: Vital signs stable. Troponin negative. CTA of the chest shows multiple PEs. Patient has a low PESI score. Will discharge with Eliquis. First dose given in the emergency department. Discussed the plan with the patient and family member at bedside and they are in agreement. Analgesia will also be written for the patient. DISCHARGE - Plan of care discussed with patient and questions answered. The patient was given both verbal and printed discharge instructions. The patient verbalized understanding and ability to comply. The patient is to seek outpatient follow up as noted in the discharge instructions. The patient verbalized understanding and ability to comply. The patient is discharged in stable condition. The patient was instructed to return for worsening symptoms. 1435: Called to bedside by nursing. Nursing reports that the patient and her family do not feel comfortable going home. Patient states she does not feel comfortable going home. I explained to her that Eliquis is a very safe medication and with her low Pasi score they are likely to be low complications with discharge while on the DOAC. She states she prefers to be admitted. I explained to reconsult the hospitalist team and it would be up to them if the patient would be admitted Dr. Herrera's team was consulted. 1441: Discussed with Dr. Herrera who states he will evaluate the patient for admission. He recommends ultrasound of the bilateral lower extremity Doppler be obtained to rule out DVT. Administered Medications Discontinued Medications Apixaban (Apixaban 5 Mg Tablet) 10 mg PO NOW STA Stop: 06/09/23 13:39 Last Admin: 06/09/23 14:15 Dose: 10 mg Documented By: JAY Ioversol (Optiray 320 500ml) 111 ml IV ONCE ONE Stop: 06/09/23 12:15 Last Admin: 06/09/23 12:14 Dose: 111 ml Documented By: CAMILO Oxycodone/Acetaminophen (Percocet 5/325mg Homepack) 1 each PO UD ONE Stop: 06/09/23 13:39 Last Admin: 06/09/23 13:47 Dose: 1 each Documented By: JAY Oxycodone/Acetaminophen (Oxycodone/Acetaminophen 5mg/325mg Tab) 1 tab PO NOW STA Stop: 06/09/23 13:39 Last Admin: 06/09/23 13:47 Dose: 1 tab Documented By: JAY Medical Decision Making Laboratory Data Attestation: I reviewed the patient's lab results. 06/09/23 10:47 06/09/23 10:00 Lab Results 06/09/23 06/09/23 06/09/23 Range/Units 10:00 10:00 10:00 WBC (4.8-10.8) K/ul RBC (4.20-5.40) M/uL Hgb (12.0-16.0) g/dl Hct (37.0-47.0) % MCV (80.0-100.0) fL MCH (25.0-34.0) pg MCHC (32.0-36.0) g/dL RDW Std Deviation (36.4-46.3) fL RDW Coeff of Inez (11.5-14.5) % Plt Count (130-400) K/uL MPV (9.4-12.4) fL Immature Gran % (Auto) % Neut % (Auto) % Lymph % (Auto) % Jack % (Auto) % Eos % (Auto) % Baso % (Auto) % Neut # (Auto) (1.40-6.50) K/uL Lymph # (Auto) (1.20-3.40) K/uL Jack # (Auto) (0.11-0.59) K/uL Eos # (Auto) (0.00-0.50) K/uL Baso # (Auto) (0.00-0.20) K/uL Immature Gran # (Auto) (0.01-0.20) K/uL PT 11.2 (9.0-12.0) Seconds INR 1.0 (0.9-1.1) APTT 27.1 (21.0-31.0) Seconds PTT Ratio 1.0 D-Dimer 16918 H* (0-500) ug/L FEU VBG pH (7.36-7.41) VBG pCO2 (38-50) mmHg VBG pO2 mmHg VBG HCO3 mmol/L VBG O2 Saturation % VBG Base Excess mEq/L Sodium 135 L (136-145) mmol/L Potassium 4.0 (3.5-5.1) mmol/L Chloride 105 (98-107) mmol/L Carbon Dioxide 23 (21-32) mmol/L Anion Gap 7 (3-11) BUN 20 (6-23) mg/dl Creatinine 0.69 (0.6-1.2) mg/dl Est Cr Clr Drug Dosing 92.8 ml/min Est GFR ( Amer) 110.4 ml/min Est GFR (Non-Af Amer) 95.3 ml/min BUN/Creatinine Ratio 29.0 H (10-20) Glucose 106 H (70-99(Fasting)) mg/dl Calcium 9.6 (8.6-10.3) mg/dl Troponin I High Sens 4.8 (0-14) pg/ml Lipase 21 (11-82) U/L SARS-CoV-2 (PCR) NEGATIVE (Negative) Influenza Type A (PCR) Negative (Neg) Influenza Type B (PCR) Negative (Neg) RSV (RT-PCR) Negative (Neg) 06/09/23 06/09/23 Range/Units 10:47 10:51 WBC 6.97 (4.8-10.8) K/ul RBC 5.28 (4.20-5.40) M/uL Hgb 16.3 H (12.0-16.0) g/dl Hct 47.7 H (37.0-47.0) % MCV 90.3 (80.0-100.0) fL MCH 30.9 (25.0-34.0) pg MCHC 34.2 (32.0-36.0) g/dL RDW Std Deviation 43.4 (36.4-46.3) fL RDW Coeff of Inez 13.1 (11.5-14.5) % Plt Count 131 (130-400) K/uL MPV 11.0 (9.4-12.4) fL Immature Gran % (Auto) 0.3 % Neut % (Auto) 70.9 % Lymph % (Auto) 19.7 % Jack % (Auto) 8.6 % Eos % (Auto) 0.1 % Baso % (Auto) 0.4 % Neut # (Auto) 4.94 (1.40-6.50) K/uL Lymph # (Auto) 1.37 (1.20-3.40) K/uL Jack # (Auto) 0.60 H (0.11-0.59) K/uL Eos # (Auto) 0.01 (0.00-0.50) K/uL Baso # (Auto) 0.03 (0.00-0.20) K/uL Immature Gran # (Auto) 0.02 (0.01-0.20) K/uL PT (9.0-12.0) Seconds INR (0.9-1.1) APTT (21.0-31.0) Seconds PTT Ratio D-Dimer (0-500) ug/L FEU VBG pH 7.42 H (7.36-7.41) VBG pCO2 38 (38-50) mmHg VBG pO2 58 mmHg VBG HCO3 25 mmol/L VBG O2 Saturation 90.0 % VBG Base Excess 0.3 mEq/L Sodium (136-145) mmol/L Potassium (3.5-5.1) mmol/L Chloride (98-107) mmol/L Carbon Dioxide (21-32) mmol/L Anion Gap (3-11) BUN (6-23) mg/dl Creatinine (0.6-1.2) mg/dl Est Cr Clr Drug Dosing ml/min Est GFR ( Amer) ml/min Est GFR (Non-Af Amer) ml/min BUN/Creatinine Ratio (10-20) Glucose (70-99(Fasting)) mg/dl Calcium (8.6-10.3) mg/dl Troponin I High Sens (0-14) pg/ml Lipase (11-82) U/L SARS-CoV-2 (PCR) (Negative) Influenza Type A (PCR) (Neg) Influenza Type B (PCR) (Neg) RSV (RT-PCR) (Neg) Imaging Data Attestation: I personally reviewed and interpreted this imaging study as follows: My Impression: Chest x-ray negative. Airway clear. No pneumothorax. No consolidation. No cardiomegaly or cephalization.. No free air under the diaphragm. No fractures of the skeletal structures. Radiologist's Impression: Chest X-Ray 06/09/23 09:37 SINGLE VIEW CHEST CLINICAL HISTORY: Atypical chest pain FINDINGS: An AP, portable, upright chest radiograph is compared to study dated 07/13/2019 and correlated with chest CT dated 12/27/2022. The cardiomediastinal silhouette is unremarkable noting atherosclerotic calcification of the thoracic aorta. Emphysema and chronic interstitial thickening is similar to previous. Foci of parenchymal scarring are seen throughout both lungs. No airspace consolidation or large pleural effusion is identified. No pneumothorax is seen. The skeletal structures are osteopenic. The bony thorax is grossly intact. IMPRESSION: Emphysematous change with no acute cardiopulmonary abnormality identified. ACT 112: Negative or not required by law. Electronically signed by: Yordan Rousseau M.D. 06/09/2023 10:39 AM Chest CTA 06/09/23 11:53 CT ANGIOGRAM OF THE CHEST CLINICAL HISTORY: Atypical chest pain. COMPARISON STUDY: Chest x-ray dated 06/09/2023. Chest CT dated 12/27/2022. TECHNIQUE: Following the IV administration of 111 cc of Optiray 320, CT angiogram of the chest was performed from the upper abdomen to the thoracic inlet utilizing the pulmonary embolus protocol. Images are reviewed in the axial, sagittal, and coronal planes. 3-D MIPS images are created and assessed. IV contrast was administered without complication. A dose lowering technique was utilized adhering to the principles of ALARA. CT DOSE: 495.2 mGy.cm FINDINGS: Thyroid: Imaged portions of the thyroid gland are normal in size and attenuation. Thoracic aorta: The thoracic aorta is normal in caliber and demonstrates standard 3-vessel arch anatomy. No dissection is seen. Pulmonary vasculature: The pulmonary trunk is normal in caliber. There are segmental and subsegmental pulmonary emboli within branches of the right and left lower lobe pulmonary arteries. A subsegmental pulmonary embolus is also seen in the lingula. The main and lobar branches appear clear. Heart: The heart is top normal in size and without pericardial effusion. Lungs and pleural spaces: Evaluation of the lung parenchyma is degraded by motion artifact. There is moderate to advanced emphysema. Postoperative changes seen at the right apex. Apical scarring/fibrosis is observed. There is subpleural consolidation at the lateral left lung base seen on image #54. There is also a small focus of subpleural consolidation in the lingula on image #60. There is trace left pleural effusion. Scarring/atelectasis is noted at both lung bases. Mediastinum: There is no mediastinal lymphadenopathy. Corie: Clear. Axillae: There is no axillary lymphadenopathy. Upper abdomen: Partially visualized upper abdominal viscera is within normal limits. Skeletal structures: The skeletal structures are osteopenic. Degenerative change and mild hyperkyphosis is noted in the spine. No lytic or blastic bony lesions are seen. IMPRESSION: 1. There are several small segmental and subsegmental pulmonary emboli within branches of the right lower lobe, left lower lobe, and lingular pulmonary arteries. 2. Foci of subpleural consolidation within the left lower lobe and lingula likely represent pulmonary infarcts given the presence of pulmonary embolus in these territories. Correlate clinically for evidence of a superimposed infectious/inflammatory pneumonitis. 3. Trace left pleural effusion. 4. Emphysema with postsurgical change at the right apex. 5. Additional findings as above. ACT 112: Negative or not required by law. Electronically signed by: Yordan Rousseau M.D. 06/09/2023 12:47 PM ECG Data Attestation: I personally reviewed and interpreted this ECG as follows: Rate (beats per minute): 91 Rhythm: normal sinus Findings: no ST depression, no ST elevation or no prolonged QT MDM Narrative 0931: The patient was evaluated in room B8. A complete history and physical exam was performed Cardiac monitoring: An order was placed for continuous cardiac monitoring. The monitor shows a rate of 90 with sinus rhythm interpreted by me 1155: Vital signs stable. Labs within normal limits. D-dimer elevated. Will obtain CT of the chest. 1340: Vital signs stable. Troponin negative. CTA of the chest shows multiple PEs. Patient has a low PESI score. Will discharge with Eliquis. First dose given in the emergency department. Discussed the plan with the patient and family member at bedside and they are in agreement. Analgesia will also be written for the patient. DISCHARGE - Plan of care discussed with patient and questions answered. The patient was given both verbal and printed discharge instructions. The patient verbalized understanding and ability to comply. The patient is to seek outpatient follow up as noted in the discharge instructions. The patient verbalized understanding and ability to comply. The patient is discharged in stable condition. The patient was instructed to return for worsening symptoms. 1435: Called to bedside by nursing. Nursing reports that the patient and her family do not feel comfortable going home. Patient states she does not feel comfortable going home. I explained to her that Eliquis is a very safe medication and with her low Pasi score they are likely to be low complications with discharge while on the DOAC. She states she prefers to be admitted. I explained to reconsult the hospitalist team and it would be up to them if the patient would be admitted Dr. Herrera's team was consulted. 1441: Discussed with Dr. Herrera who states he will evaluate the patient for admission. He recommends ultrasound of the bilateral lower extremity Doppler be obtained to rule out DVT. Impression & Plan Pulmonary emboli Discharge Plan Visit Data Chief Complaint: Rib Injury/Pain Stated Complaint: L RIB PAIN, ILLNESS ED Provider: Alexis Tidwell Discharge Problem: Pulmonary emboli Patient Disposition: Home - Self-Care Discharge Instructions Efrain/Other Patient Handouts: Pulmonary Embolism Dc Activity Restrictions/Additional Instructions: Monitor your stools and urine to make sure that there is no blood in them since you are being started on blood thinners. If you fall and hit your head or suffer significant fall or trauma seek immediate medical care while on the blood thinners. Forms Stand Alone Forms: [facility], Virtual Emergency Department, Important Visit Information Prescriptions Prescriptions: New oxycodone 5 mg tablet 5 mg PO Q8H PRN (Reason: pain) Qty: 11 0RF Eliquis 5 mg tablet See Rx Instructions .ROUTE .COMPLEX Qty: 74 0RF Rx Instructions: Take 10 mg (2 tablets) twice daily for day 1 through 7; beginning on day #8 8 5 mg (1 tablet) twice daily No Action epinephrine [EpiPen 2-Navin] 0.3 mg/0.3 mL auto-injector 0.3 mg subcut ONCE PRN (Reason: anaphylaxis) Qty: 2 3RF Rx Instructions: Then proceed to ER lorazepam 0.5 mg tablet 0.5 mg PO TID PRN (Reason: anxiety) Qty: 90 0RF ibuprofen 800 mg tablet 800 mg PO TID PRN (Reason: pain) Qty: 90 1RF omeprazole 40 mg capsule,delayed release(DR/EC) 40 mg PO QAM Qty: 90 1RF ropinirole 2 mg tablet 2 mg PO BID Qty: 180 3RF ropinirole 3 mg tablet 3 mg PO HS Qty: 90 3RF Vitron-C 65 mg iron- 125 mg tablet,delayed release (DR/EC) 1 tab PO DAILY B12 Active 1,000 mcg tablet,chewable 1,000 mcg PO DAILY thiamine HCl (vitamin B1) 500 mg tablet 500 mg PO DAILY diclofenac sodium [Voltaren Arthritis Pain] 1 % gel 2 g topical QID Qty: 100 5RF Rx Instructions: apply to single elbow, wrist or hand; for hand includes palm/fingers/back of hand colesevelam 625 mg tablet 625 mg PO BIDWMEAL gabapentin 400 mg capsule See Rx Instructions .ROUTE .COMPLEX Rx Instructions: 400 mg PO in the AM, and 800mg in the evening; sertraline 100 mg tablet 0 mg PO DAILY Rx Instructions: Per pharmacy med list, medication is currently on hold. SIG on med list is 150mg by mouth daily Referrals Referrals: Stormy Iqbal MD [Primary Care Provider] - (Follow-up in 1-7 days.) Pulmonary emboli Qualifiers: Pulmonary embolism type: multiple subsegmental (without acute cor pulmonale) Qualified Code(s): I26.94 - Multiple subsegmental pulmonary emboli without acute cor pulmonale
--- NOTE | 2023-06-09 10:41 | XRay Report ---
SINGLE VIEW CHEST CLINICAL HISTORY: Atypical chest pain FINDINGS: An AP, portable, upright chest radiograph is compared to study dated 07/13/2019 and correla mariano with chest CT dated 12/27/2022. The cardiomediastinal silhouette is unremarkable noting atheroscler otic calcification of the thoracic aorta. Emphysema and chronic interstitial thickening is similar to previous. Foci of parenchymal scarring are seen throughout both lungs. No airspace consolidation or large pleural effusion is identified. No pneumothorax is seen. The skeletal structures are osteopenic . The bony thorax is grossly intact. IMPRESSION: Emphysematous change with no acute cardiopulmonary abnormality identified. ACT 112: Negative or not required by law. Electronically signed by: Yordan Rousseau M.D. 06/09/2023 10:39 AM
[2023-06-09 11:00] LABS: Base Excess VBG 0.3 mEq/L; HCO3 VBG 25 mmol/L; PCO2 VBG 38 mmHg (38-50); PO2 VBG 58 mmHg; pH VBG 7.42 (7.36-7.41)
[2023-06-09 11:03] LABS: Calcium 9.6 mg/dl (8.6-10.3); Creatinine Clr Calc Pharmacy 92.8 ml/min; Est GFR (African American) 110.4 ml/min; Est GFR (Non-African American) 95.3 ml/min
[2023-06-09 11:07] LABS: Troponin I High Sensitivity 4.8 pg/ml (0-14)
[2023-06-09 11:07] LABS: Basophils # (auto) 0.03 K/uL (0.00-0.20); Basophils % (auto) 0.4 %; Eosinophils # (auto) 0.01 K/uL (0.00-0.50); Eosinophils % (auto) 0.1 %; Hematocrit (blood only) 47.7 % (37.0-47.0); Hemoglobin 16.3 g/dl (12.0-16.0); Immature Granulocytes # (auto) 0.02 K/uL (0.01-0.20); Immature Granulocytes % (auto) 0.3 %; Lymphocytes # (auto) 1.37 K/uL (1.20-3.40); Lymphocytes % (auto) 19.7 %; Mean Corpuscular Hemoglobin 30.9 pg (25.0-34.0); Mean Corpuscular Hgb Conc 34.2 g/dL (32.0-36.0); Mean Corpuscular Volume 90.3 fL (80.0-100.0); Monocytes % (auto) 8.6 %; Neutrophils # (auto) 4.94 K/uL (1.40-6.50); Neutrophils % (auto) 70.9 %; Platelet Count 131 K/uL (130-400); RDW Coefficient of Variation 13.1 % (11.5-14.5); RDW Standard Deviation 43.4 fL (36.4-46.3); Red Blood Count 5.28 M/uL (4.20-5.40); White Blood Count 6.97 K/ul (4.8-10.8)
[2023-06-09 11:13] LABS: Influenza A virus by PCR Negative (Neg); Influenza B virus by PCR Negative (Neg); RSV by PCR Negative (Neg); SARS CoV2 RNA(COVID-19) Ceph NEGATIVE (Negative)
[2023-06-09 11:19] LABS: Partial Thromboplastin Time 27.1 Seconds (21.0-31.0); Prothrombin Time 11.2 Seconds (9.0-12.0)
[2023-06-09 11:48] LABS: D Dimer 21760 ug/L FEU (0-500)
[2023-06-09] MEDS ORDERED: OPTIRAY 320 500ml IV ONE (12:14)
--- NOTE | 2023-06-09 12:49 | CT Scan Report ---
CT ANGIOGRAM OF THE CHEST CLINICAL HISTORY: Atypical chest pain. COMPARISON STUDY: Chest x-ray dated 06/09/2023. Chest CT dated 12/27/2022. TECHNIQUE: Following the IV administration of 111 cc of Optiray 320, CT angiogram of the chest was pe rformed from the upper abdomen to the thoracic inlet utilizing the pulmonary embolus protocol. Images are reviewed in the axial, sagittal, and coronal planes. 3-D MIPS images are created and assessed. I V contrast was administered without complication. A dose lowering technique was utilized adhering to the principles of ALARA. CT DOSE: 495.2 mGy.cm FINDINGS: Thyroid: Imaged portions of the thyroid gland are normal in size and attenuation. Thoracic aorta: The thoracic aorta is normal in caliber and demonstrates standard 3-vessel arch anato my. No dissection is seen. Pulmonary vasculature: The pulmonary trunk is normal in caliber. There are segmental and subsegmental pulmonary emboli within branches of the right and left lower lobe pulmonary arteries. A subsegmental pulmonary embolus is also seen in the lingula. The main and lobar branches appear clear. Heart: The heart is top normal in size and without pericardial effusion. Lungs and pleural spaces: Evaluation of the lung parenchyma is degraded by motion artifact. There is moderate to advanced emphysema. Postoperative changes seen at the right apex. Apical scarring/fibrosi s is observed. There is subpleural consolidation at the lateral left lung base seen on image #54. The re is also a small focus of subpleural consolidation in the lingula on image #60. There is trace left pleural effusion. Scarring/atelectasis is noted at both lung bases. Mediastinum: There is no mediastinal lymphadenopathy. Corie: Clear. Axillae: There is no axillary lymphadenopathy. Upper abdomen: Partially visualized upper abdominal viscera is within normal limits. Skeletal structures: The skeletal structures are osteopenic. Degenerative change and mild hyperkyphos is is noted in the spine. No lytic or blastic bony lesions are seen. IMPRESSION: 1. There are several small segmental and subsegmental pulmonary emboli within branches of the right l ower lobe, left lower lobe, and lingular pulmonary arteries. 2. Foci of subpleural consolidation within the left lower lobe and lingula likely represent pulmonary infarcts given the presence of pulmonary embolus in these territories. Correlate clinically for evid ence of a superimposed infectious/inflammatory pneumonitis. 3. Trace left pleural effusion. 4. Emphysema with postsurgical change at the right apex. 5. Additional findings as above. ACT 112: Negative or not required by law. Electronically signed by: Yordan Rousseau M.D. 06/09/2023 12:47 PM
[2023-06-09] MEDS ORDERED: oxyCODONE/ACETAMINOPHEN 5mg/325mg TAB PO STA (13:38)
[2023-06-09] MEDS ORDERED: PERCOCET 5/325MG HOMEPACK PO ONE (13:38)
[2023-06-09] MEDS: APIXABAN 5 MG TABLET PO STA ×2 (13:48→14:15)
--- NOTE | 2023-06-09 14:52 | History & Physical Report ---
Date of Service June 09, 2023 Assessment & Plan (1) Pulmonary emboli: Plan: Pt is a 58 yo female with PMH of ?Crohn's disease, RLS, migraine, asthma, depression/anxiety, and emphysema presenting due to flu-like symptoms and rib pain. 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 - appears to be unprovoked; no personal hx of clots, pt's identical twin sister with multiple clotting episodes - anticoagulation with eliquis 10 mg BID x7 days (first dose, 2:15PM 06/09), then decrease to 5 mg BID for at least 3 mths - discussed with pt the importance of anticoagulation and continued discussions with her PCP concerning continuation/discontinuation - coag panel ordered - pain control with tylenol 650mg q4hr PRN, oxycodone 5mg q8hr PRN; avoid NSAIDs Chronic pain - continue home gabapentin 400 mg in AM, 800 mg in PM - avoid NSAIDs HLD - recently dx by PCP; no medication started Tobacco use - currently 1ppd smoker - discussed this as risk factor for clotting among other conditions - encourage continued cessation conversations Depression - pt's sertraline dose recently increased to 150 mg by PCP, continue home dose RLS - continue 3 mg ropinirole HS Diet: heart healthy Code: DNR/DNI DVT ppx: eliquis 10 mg BID x7 days Dispo: observation to med/surg with tele (2) Hyperlipidemia: (3) Smoker: (4) Restless legs syndrome: (5) Acid reflux disease: (6) Arthritis: History of Present Illness Chief Complaint: rib pain Primary Care Provider: Stormy Iqbal MD Pt is a 58 yo female with PMH of ?Crohn's disease, RLS, migraine, asthma, depression/anxiety, and emphysema presenting due to flu-like symptoms and rib pain. Pt states she fell ill Wednesday 06/06 with headache, fever, and cough. This continued throughout the week. This morning prior to presentation she developed sharp pain of her left ribs which worsens with deep breaths. She originally thought maybe she cracked a rib from coughing but she does not recall coughing that much. She denies personal hx of blood clots but does endorse that her twin sister has had multiple unprovoked DVTs in the past. Pt is up to date on her cancer screenings. Her twin sister has a hx of Hodgkin's lymphoma- the pt was checked for this and that screening was negative. She also explains that she has had ongoing issues with diarrhea with her most recent colonoscopy earlier this year which was negative with a recommended repeat in 3 years d/t hx of polyps. Pt currently smokes 1 ppd. In the ED, lab work was significant for no leukocytosis, Hgb 16.3, d-dimer 66231, Na 135, and Cr 0.69. She was negative for COVID, influenzae, and RSV. CXR showed emphysema w/o signs of PNA or fluid overload. Chest CTA showed several segmental and subsegmental pulmonary emboli in the RLL and LLL with infarcts present in the LLL. Allergies Allergy/AdvReac Type Severity Reaction Status Date / Time venlafaxine Allergy Mild NAUSEA Verified 06/06/23 09:12 bupropion Allergy Unknown Nausea/Vomi Verified 06/06/23 09:12 ting morphine AdvReac Mild BURNING Verified 06/06/23 09:12 FEELING Home Medications Medication Instructions Recorded Confirmed Type epinephrine 0.3 mg/0.3 mL 0.3 mg (0.3 mL) subcut ONCE PRN 07/12/19 06/06/23 Rx injection, auto-injector (EpiPen anaphylaxis #2 ea 2-Navin) iron,carbonyl 65 mg-vitamin C 125 1 tab PO DAILY 10/22/20 06/06/23 History mg tablet,delayed release (Vitron-C) diclofenac sodium 1 % topical gel 2 g topical QID #100 grams 11/16/21 06/06/23 Rx (Voltaren Arthritis Pain) mecobalamin (vitamin B12) 1,000 1,000 mcg PO DAILY 11/16/21 06/06/23 History mcg chewable tablet (B12 Active) thiamine HCl (vitamin B1) 500 mg 500 mg PO DAILY 11/16/21 06/06/23 History tablet lorazepam 0.5 mg tablet 0.5 mg PO TID PRN anxiety #90 tabs 07/20/22 06/06/23 Rx ibuprofen 800 mg tablet 800 mg PO TID PRN pain #90 tabs 09/23/22 06/06/23 Rx omeprazole 40 mg capsule,delayed 40 mg PO QAM #90 caps 03/06/23 06/09/23 Rx release ropinirole 2 mg tablet 2 mg PO BID restless legs #180 tabs 03/10/23 06/09/23 Rx ropinirole 3 mg tablet 3 mg PO HS restless legs #90 tabs 05/15/23 06/09/23 Rx apixaban 5 mg tablet (Eliquis) See Rx Instructions .Route 06/09/23 Rx .COMPLEX #74 tabs colesevelam 625 mg tablet 625 mg PO BIDWMEAL 06/09/23 06/09/23 History gabapentin 400 mg capsule See Rx Instructions .Route .COMPLEX 06/09/23 06/09/23 History oxycodone 5 mg tablet 5 mg PO Q8H PRN pain #11 tabs 06/09/23 Rx sertraline 100 mg tablet 0 mg PO DAILY 06/09/23 06/09/23 History Past Med/Surg History Medical History Acid reflux disease Anxiety and depression Asthma Cholelithiasis Chronic pain syndrome Crohns disease Migraine headache Pulmonary emphysema Restless legs syndrome Surgical History H/O elbow surgery left H/O knee surgery left H/O shoulder surgery H/O tubal ligation H/O: hysterectomy History of lung surgery Hx laparoscopic cholecystectomy (01/07/22) Laparoscopic cholecystectomy. Dr. Rausch Family History Father Diabetes Hypertension Cardiac disorder Urinary bladder cancer Myocardial infarction Lung disease Heart disease Mother Kidney stones Anxiety Depression Arthritis Uncle Prostate cancer Unknown Breast cancer Grandmother (Maternal) Arthritis Grandfather (Maternal) Dementia Grandmother (Paternal) Heart disease Grandfather (Paternal) Gallbladder cancer Sister Stroke Kidney failure Social History Smoking Status: Current every day smoker Tobacco Type: Cigarettes Age Started Using Tobacco: 12; packs per day: 1.5; Cigarettes Per Day: 1.5 packs; Second Hand Exposure: Yes ( A CHILD ); Do You Dip or Chew Tobacco: No; Hx Alcohol Use: Yes Alcohol type: wine and hard liquor Alcohol Intake Frequency: Monthly or Less Hx Substance Use: No Preferred Language: Telugu Communication Ability: Effective Visual Impairment: No Limitations Hearing Ability: Normal Resident Surgeon Required: No Beliefs That Will Affect Care: None marital status: Current Living Situation: Spouse current occupational status: disabled How many Children do You have: 1 Feels Safe at Home: Yes Childhood Exposure to Second-Hand Smoke: No Diet: regular caffeine: Yes (Coffee x 1 cup - Soda 1 per day.) during the past year weight has: remained stable Dental Care, Regularly: No Physical Activity Frequency: Daily Seatbelt Use: always Sunscreen Use: No Assistive Devices: Glasses Review of Systems Review of Systems: As per HPI Physical Exam Physical Exam: Constitutional: well appearing, no acute distress HEENT: normocephalic, no conjunctival injection CV: regular rhythm, regular rate, no murmur Respiratory: Clear to auscultation bilaterally. No rhonchi, wheezes, or crackles. No increased work of breathing. Diminished breath sounds d/t lack of inspiratory effort limited by pain. MSK: no gross deformities noted Skin: warm, dry, no rashes Neuro: alert, oriented, no FND noted Results & Data Results & Data Vital Signs (Past 12 Hours) Vital Signs Temp Pulse Pulse Resp BP BP Pulse Ox 06/09/23 14:00 105 H 26 H 126/91 93 06/09/23 12:00 85 20 110/69 96 06/09/23 10:29 96 H 06/09/23 09:54 94 H 20 93 06/09/23 09:20 37.2 C 94 H 20 143/86 H 93 O2 Del Method 06/09/23 14:00 Room Air 06/09/23 12:00 Room Air 06/09/23 10:29 06/09/23 09:54 Room Air 06/09/23 09:20 Room Air Supervising Physician Co-Signing Physician Notes Attending addendum: I have supervised the medical residents activities, and agree with the H&P unless as otherwise noted. Assessment and Plan: Segmental and subsegmental bilateral lower lobe PEs and lingula/pulmonary infarcts- Anticoagulation with Eliquis 10 mg twice daily for 1 week, and then decrease to 5 mg twice daily Hypercoagulability profile ordered and pending Pain control with Tylenol and oxycodone as noted Tobacco use disorder- Currently smoking 1 PPD Cessation counseling Chronic pain syndrome- Continue gabapentin 400/300 RLS- Continue ropinirole Resident Activity Tracking Resident Involvement: Resident Care Provided Care Provided: Adult [facility] Medicine (1) Pulmonary emboli Pulmonary embolism type: multiple subsegmental (without acute cor pulmonale) Qualified Code(s): I26.94 - Multiple subsegmental pulmonary emboli without acute cor pulmonale
--- NOTE | 2023-06-09 17:55 | Billing Data ---
Date of Service June 09, 2023 Coding Level of Care Code 52761 INT INP/OBS CARE
[2023-06-09] MEDS ORDERED: oxyCODONE HCL IR 5 MG TAB (IMMEDIATE RELEASE) PO PRN (19:37)
[2023-06-09] MEDS ORDERED: GABAPENTIN 400 MG CAP PO SCH ×2 (19:37→21:00)
[2023-06-09] MEDS ORDERED: rOPINIRole HCL 1 MG TABLET PO SCH (21:00)
--- NOTE | 2023-06-09 21:10 | Ultrasound Report ---
ULTRASOUND BILATERAL LOWER EXTREMITY VENOUS CLINICAL HISTORY: Pulmonary embolus. COMPARISON STUDY: Left lower extremity venous ultrasound dated 01/04/2017. TECHNIQUE: Real-time, grayscale, and color Doppler sonography of the deep veins of the right and left lower extremity was performed from the inguinal crease to the calf. Compression and augmentation wer e utilized. FINDINGS: Right lower extremity: Deep venous thrombosis is seen in the calf within one of the posterior tibial veins. There is also deep venous thrombosis within the peroneal veins. The common femoral, superficia l femoral, and popliteal veins are patent and normally compressible. The greater saphenous vein and t he profunda femoris vein at the junction with the common femoral vein are clear. Left lower extremity: The venous thrombosis is seen in the calf within the peroneal veins. The remain ing calf vessels appear patent. The common femoral, superficial femoral, and popliteal veins are sullivan nt and normally compressible. The greater saphenous vein and the profunda femoris vein at the junctio n with the common femoral vein are clear. IMPRESSION: Deep venous thrombosis is seen in the calf bilaterally as above. ACT 112: Negative or not required by law. Electronically signed by: Yordan Rousseau M.D. 06/09/2023 9:08 PM
[2023-06-09] MEDS ORDERED: ONDANSETRON INJ 2 MG/ML 2 ML VIAL IV PRN (22:02)
[2023-06-09] MEDS ORDERED: Nursing to Pharmacy Communication SCH (22:15)
[2023-06-09] MEDS: ACETAMINOPHEN 325 MG TAB PO PRN (22:46)
[2023-06-10 07:10] LABS: Hematocrit (blood only) 44.6 % (37.0-47.0); Hemoglobin 15.7 g/dl (12.0-16.0); Mean Corpuscular Hgb Conc 35.2 g/dL (32.0-36.0); Mean Platelet Volume 11.3 fL (9.4-12.4); Platelet Count 148 K/uL (130-400); RDW Coefficient of Variation 13.2 % (11.5-14.5); RDW Standard Deviation 42.3 fL (36.4-46.3); Red Blood Count 5.07 M/uL (4.20-5.40); White Blood Count 8.17 K/ul (4.8-10.8)
--- NOTE | 2023-06-10 07:29 | Electrocardiogram Report ---
Test Reason : Blood Pressure : / mmHG Vent. Rate : 091 BPM Atrial Rate : 091 BPM P-R Int : 140 ms QRS Dur : 088 ms QT Int : 342 ms P-R-T Axes : 068 028 048 degrees QTc Int : 420 ms Normal sinus rhythm Normal ECG When compared with ECG of 01-NOV-2022 15:58, T wave amplitude has decreased in Inferior leads Nonspecific T wave abnormality now evident in Lateral leads Confirmed by Patrice Moreno ([id number]) on 06/10/2023 7:29:34 AM Referred By: REFERRED SELF Confirmed By:Patrice Moreno
[2023-06-10] MEDS ORDERED: COLESTIPOL HCL 1 GM TAB PO SCH ×2 (08:00→09:00)
[2023-06-10 08:19] LABS: Calcium 9.6 mg/dl (8.6-10.3); Potassium 3.9 mmol/L (3.5-5.1)
[2023-06-10 08:24] LABS: BUN Creatinine Ratio 33.3 (10-20); Creatinine Clr Calc Pharmacy 117.2 ml/min; Est GFR (African American) 119.7 ml/min; Est GFR (Non-African American) 103.3 ml/min
[2023-06-10] MEDS ORDERED: SERTRALINE HCL 100 MG TABLET PO SCH (09:00)
[2023-06-10] MEDS ORDERED: PANTOprazole 40 MG TAB PO SCH (09:00)
[2023-06-10] MEDS ORDERED: INFLUENZA VIRUS QUADRIVALENT VACCINE (IIV4) 0.5 ML SYR IM ONE (09:00)
[2023-06-10] MEDS ORDERED: GABAPENTIN 400 MG CAP PO SCH (09:00)
[2023-06-10] MEDS: APIXABAN 5 MG TABLET PO SCH ×2 (09:05)
[2023-06-10] MEDS: ACETAMINOPHEN 325 MG TAB PO PRN (09:21)
--- NOTE | 2023-06-10 12:44 | Discharge Summary ---
Date of Service June 10, 2023 Admission HPI Per Admitting Provider Pt is a 58 yo female with PMH of ?Crohn's disease, RLS, migraine, asthma, depression/anxiety, and emphysema presenting due to flu-like symptoms and rib pain. Pt states she fell ill Wednesday 06/06 with headache, fever, and cough. This continued throughout the week. This morning prior to presentation she developed sharp pain of her left ribs which worsens with deep breaths. She originally thought maybe she cracked a rib from coughing but she does not recall coughing that much. She denies personal hx of blood clots but does endorse that her twin sister has had multiple unprovoked DVTs in the past. Pt is up to date on her cancer screenings. Her twin sister has a hx of Hodgkin's lymphoma- the pt was checked for this and that screening was negative. She also explains that she has had ongoing issues with diarrhea with her most recent colonoscopy earlier this year which was negative with a recommended repeat in 3 years d/t hx of polyps. Pt currently smokes 1 ppd. In the ED, lab work was significant for no leukocytosis, Hgb 16.3, d-dimer 28824, Na 135, and Cr 0.69. She was negative for COVID, influenzae, and RSV. CXR showed emphysema w/o signs of PNA or fluid overload. Chest CTA showed several segmental and subsegmental pulmonary emboli in the RLL and LLL with infarcts present in the LLL. Principal Diagnosis acute pulmonary emboli Discharge Exam Constitutional: well appearing, no acute distress HEENT: normocephalic, no conjunctival injection CV: regular rhythm, regular rate, no murmur Respiratory: Clear to auscultation bilaterally. No rhonchi, wheezes, or crackles. No increased work of breathing. Diminished breath sounds d/t lack of inspiratory effort limited by pain. MSK: no gross deformities noted Skin: warm, dry, no rashes Neuro: alert, oriented, no FND noted Discharge Data Allergies Allergy/AdvReac Type Severity Reaction Status Date / Time venlafaxine Allergy Mild NAUSEA Verified 06/06/23 09:12 bupropion Allergy Unknown Nausea/Vomi Verified 06/06/23 09:12 ting morphine AdvReac Mild BURNING Verified 06/06/23 09:12 FEELING Consultations 06/09/23 14:35 ED Decision to Admit Stat Ordered Studies 06/09/23 11:53 CT angio chest PE protocol Stat 06/09/23 14:41 US venous doppler LE Stat Hospital Course (1) Pulmonary emboli: Pt is a 58 yo female with PMH of ?Crohn's disease, RLS, migraine, asthma, depression/anxiety, and emphysema presenting due to flu-like symptoms and rib pain. 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 -Provoked by patient laying in bed the past 2 days prior to admission from likely viral illness. - no personal hx of clots, pt's identical twin sister with multiple clotting episodes - anticoagulation with eliquis 10 mg BID x7 days (first dose, 2:15PM 06/09), then decrease to 5 mg BID for at least 3 mths - discussed with pt the importance of anticoagulation and continued discussions with her PCP concerning continuation/discontinuation - coag panel ordered - pain control with tylenol 650mg q4hr PRN, oxycodone 5mg q8hr PRN; avoid NSAIDs will discharge on oxycodone/ eliquis for anticoagulation. Chronic pain - continue home gabapentin 400 mg in AM, 800 mg in PM - avoid NSAIDs HLD - recently dx by PCP; no medication started Tobacco use - currently 1ppd smoker - discussed this as risk factor for clotting among other conditions - encourage continued cessation conversations Depression - pt's sertraline dose recently increased to 150 mg by PCP, continue home dose RLS - continue 3 mg ropinirole HS (2) Hyperlipidemia: (3) Smoker: (4) Restless legs syndrome: (5) Acid reflux disease: (6) Arthritis: Total Time Total Time Spent Total Time Spent (In Minutes): 32 Discharge Plan Discharge Items Patient Disposition: Home - Self-Care Reason For Visit: BILATERAL SUBSEGMENTAL PES Discharge Diagnosis: bilateral subsegmental PEs Activity: Resume your previous activity Non-emergency contact: Primary Care Provider Call non-emergency contact if: you have any medication questions Follow-up/Referrals: Stormy Iqbal MD [Primary Care Provider] - 06/20/23 9:20 am Diet: Heart Healthy Addtl Attending Provider Instructions: You were found to have clots in your lung. You will need to be on blood thinning medication at least for 4-6 months. Will recommend close followup with PCP in 1-2 weeks. Pending Studies at Discharge: No Stand-Alone Forms: My [facility], Smoking Cessation Medications and DC Order Prescriptions: New oxycodone 5 mg tablet 5 mg PO Q8H PRN (Reason: pain) Qty: 11 0RF Eliquis 5 mg Tablet 10 mg PO BID Qty: 60 0RF Rx Instructions: Take 2 tablets twice a day for 11 doses On 06/16, take 1 tablet twice a day. oxycodone 5 mg tablet 5 mg PO BID PRN (Reason: pain) Qty: 10 0RF Senna Plus 8.6-50 mg capsule 1 tab-cap PO BID PRN (Reason: constipation) Qty: 30 0RF Rx Instructions: constipation from oxycodone Continued epinephrine [EpiPen 2-Navin] 0.3 mg/0.3 mL auto-injector 0.3 mg subcut ONCE PRN (Reason: anaphylaxis) Qty: 2 3RF Rx Instructions: Then proceed to ER lorazepam 0.5 mg tablet 0.5 mg PO TID PRN (Reason: anxiety) Qty: 90 0RF omeprazole 40 mg capsule,delayed release(DR/EC) 40 mg PO QAM Qty: 90 1RF ropinirole 2 mg tablet 2 mg PO BID Qty: 180 3RF ropinirole 3 mg tablet 3 mg PO HS Qty: 90 3RF B12 Active 1,000 mcg tablet,chewable 1,000 mcg PO DAILY thiamine HCl (vitamin B1) 500 mg tablet 500 mg PO DAILY colesevelam 625 mg tablet 625 mg PO BIDWMEAL gabapentin 400 mg capsule See Rx Instructions .ROUTE .COMPLEX Rx Instructions: 400 mg PO in the AM, and 800mg in the evening; sertraline 100 mg tablet 0 mg PO DAILY Rx Instructions: Per pharmacy med list, medication is currently on hold. SIG on med list is 150mg by mouth daily Discontinued ibuprofen 800 mg tablet 800 mg PO TID PRN (Reason: pain) Qty: 90 1RF diclofenac sodium [Voltaren Arthritis Pain] 1 % gel 2 g topical QID Qty: 100 5RF Rx Instructions: apply to single elbow, wrist or hand; for hand includes palm/fingers/back of hand Discharge Orders: Discharge Order (Routine); Ordered 06/10/23 Ordered By: Gabino Polk Admission Data Admit Date/Time: 06/09/23 15:49 Attending Provider: Gabino Polk Admit Provider: Dia Díaz Primary Care Provider: Stormy Iqbal Other Providers: August Reyna Other Interventions: Discharge Summary Assessment (RN) Last Done: 06/10/23 12:49 Coding Level of Care Code 91530 INP/OBS DISCH >30 MIN Diagnoses Pulmonary emboli I26.94 Pulmonary embolism type: multiple subsegmental (without acute cor pulmonale) Hyperlipidemia E78.5 Smoker F17.200 Restless legs syndrome G25.81 Acid reflux disease K21.9 Arthritis M19.90
[2023-06-10] MEDS ORDERED: SERTRALINE HCL 50 MG TABLET PO SCH (21:00)
[2023-06-17 07:17] LABS: Anti Cardiolipin Ab IgG <2.0 GPL-U/mL; Anti-Thrombin III Activity 109 % normal (80-135); B2 Glycoprotein IgG <2.0 U/mL (<20.0); Protein S Functional(Activity) 55 % normal (60-140)
[2023-06-17 17:23] LABS: Factor 5 Mutation NEGATIVE
== END 2023-06-10 16:31 | disposition home or self-care (01) ==
LOC: ED 09:19 → 2N 09:19 → SUATTDRO 15:49 → 2N 18:17